=== PATIENT | female | born 1960 | race Caucasian/White ===

== ENCOUNTER → 2016-11-27 | Outpatient (CLI) | payer OTHER, BC ==
[~2016-11-27] MED LIST: BISA10SU3 PR; DICL1GEL28 TOP; IBUP-1050 PO; MISCCAP80 PO; POTA1080 PO; TOLT4CAP PO
--- NOTE | 2016-11-27 12:03 | DIAGNOSTIC IMAGING REPORT ---
KUB CLINICAL HISTORY: N20.0 [id number] nephrocalcinosis COMPARISON STUDY: 07/20/2014. FINDINGS: Right kidney is obscured due to overlying fecal material. Multiple punctate calcifications overlying the lower pole left kidney. No additional calcifications are appreciated. There are several pelvic vascular calcification. Bowel pattern is nonobstructive. IMPRESSION: Several punctate calcifications measuring up to 2.5 mm are present lower pole left kidney. Study otherwise is negative. Poor visibility right kidney due to overlying bowel content The above report was generated using voice recognition software. It may contain grammatical, syntax or spelling errors. Electronically signed by: Willie Lira M.D. 11/27/2016 12:01 PM Dictated Date/Time: 11/27/2016 12:00 PM
== END | disposition home or self-care (01) ==
LOC: C.RAD 11:14
PROVIDERS: ATTEND Urology
DX: N20.0 Calculus of kidney (principal); N39.0 Urinary tract infection, site not specified; Z11.59 Encounter for screening for other viral diseases

== ENCOUNTER → 2016-11-27 | Outpatient (CLI) | payer BC | END | disposition home or self-care (01) | LOC: C.LAB 11:09 | PROVIDERS: ATTEND Family Medicine | DX: Z11.59 Encounter for screening for other viral diseases (principal) ==

== ENCOUNTER → 2017-01-26 | Outpatient (CLI) | payer BC ==
--- NOTE | 2017-01-26 14:20 | MAMMOGRAPHY REPORT ---
BILATERAL DIGITAL SCREENING MAMMOGRAM TOMOSYNTHESIS WITH CAD: 01/26/2017 CLINICAL HISTORY: Routine screening. Patient has no complaints. TECHNIQUE: Breast tomosynthesis in addition to standard 2D mammography was performed. Current study was also evaluated with a Computer Aided Detection (CAD) system. COMPARISON: Comparison is made to exams dated: 12/14/2013 ultrasound, 12/14/2013 mammogram, 11/22/2013 ma mmogram, 10/31/2012 mammogram, 03/22/2012 ultrasound, and 03/22/2012 mammogram - [facility] enter. BREAST COMPOSITION: The tissue of both breasts is heterogeneously dense, which may obscure small mas ses. FINDINGS: No suspicious masses, calcifications, or areas of architectural distortion are noted in ei ther breast. There has been no significant interval change compared to prior exams. IMPRESSION: ACR BI-RADS CATEGORY 1: NEGATIVE There is no mammographic evidence of malignancy. A 1 year screening mammogram is recommended. The pa tient will receive written notification of the results. Approximately 10% of breast cancers are not detected with mammography. A negative mammographic report should not delay biopsy if a clinically suggestive mass is present. Elisha Jimenez M.D. /:01/26/2017 07:58:18 Quantitative Strategy Analyst: Jacki Hirsch [facility] letter sent: Normal 1/2 BI-RADS Code: ACR BI-RADS Category 1: Negative
== END | disposition home or self-care (01) ==
LOC: C.MAMM 07:28
PROVIDERS: ATTEND Family Medicine
DX: Z12.31 Encounter for screening mammogram for malignant neoplasm of breast (principal)

== ENCOUNTER → 2017-07-26 | Outpatient (CLI) | payer OTHER ==
--- NOTE | 2017-07-26 07:33 | DIAGNOSTIC IMAGING REPORT ---
KUB HISTORY: Follow-up study in a patient with left-sided nephrolithiasis N20.0 [id number] COMPARISON: KUB 11/27/2016, CT 05/03/2016. FINDINGS: The bowel gas pattern is non-obstructive. There is no organomegaly. Renal shadows are partially obscured by bowel gas. Left-sided nephrolithiasis redemonstrated with calculi measuring up to 3 mm. No definite right-sided nephrolithiasis or ureteral calculi are identified. Calcifications of the pelvis appear unchanged suggesting phleboliths. No pneumoperitoneum or pneumatosis. No fracture. Mild convex left curvature of the lumbar spine. IMPRESSION: Unchanged left sided nephrolithiasis without ureteral calculi identified. Electronically signed by: Bk Vasquez M.D. 07/26/2017 7:32 AM Dictated Date/Time: 07/26/2017 7:29 AM
== END | disposition home or self-care (01) ==
LOC: C.RAD 07:00
PROVIDERS: ATTEND Urology
DX: N20.0 Calculus of kidney (principal)

== ENCOUNTER 2021-02-21 11:23 | Inpatient (IN) ==
[2021-02-21 12:37] LABS: Basophils # (auto) 0.01 K/uL (0-0.2); Basophils % (auto) 0.1 %; Eosinophils # (auto) 0.02 K/uL (0-0.5); Eosinophils % (auto) 0.2 %; Hematocrit (blood only) 40.2 % (37-47); Immature Granulocytes # (auto) 0.03 K/uL (0.00-0.02); Immature Granulocytes % (auto) 0.3 %; Lymphocytes % (auto) 9.5 %; Mean Corpuscular Hemoglobin 26.9 pg (25-34); Mean Corpuscular Hgb Conc 32.3 g/dL (32-36); Mean Corpuscular Volume 83.2 fL (80-100); Mean Platelet Volume 9.5 fL (7.4-10.4); Monocytes # (auto) 0.69 K/uL (0.11-0.59); Monocytes % (auto) 7.3 %; Neutrophils # (auto) 7.86 K/uL (1.4-6.5); Neutrophils % (auto) 82.6 %; Platelet Count 161 K/uL (130-400); RDW Standard Deviation 42.7 fL (36.4-46.3); Red Blood Count 4.83 M/uL (4.2-5.4); White Blood Count 9.51 K/uL (4.8-10.8)
[2021-02-21] MEDS ORDERED: SODIUM CHLORIDE 0.9% 1000ML 1,000 ML IV ONE (12:47)
[2021-02-21] MEDS ORDERED: ACETAMINOPHEN 1000 MG/100 ML IV IV STA (12:47)
[2021-02-21] MEDS ORDERED: cefTRIAXone SODIUM 2,000 MG/70 ML BAG IV STA (12:47)
[2021-02-21 12:56] LABS: Alanine Aminotransferase 43 U/L (12-78); Albumin Level 2.7 gm/dl (3.4-5.0); Aspartate Aminotransferase 44 U/L (15-37); BUN Creatinine Ratio 11.5 (10-20); Blood Urea Nitrogen 13 mg/dl (7-18); Calcium 9.1 mg/dl (8.5-10.1); Carbon Dioxide 26 mmol/L (21-32); Chloride 105 mmol/L (98-107); Est GFR (African American) 61.6 ml/min; Est GFR (Non-African American) 53.2 ml/min; Glucose 109 mg/dl (70-99); Potassium 4.1 mmol/L (3.5-5.1); Sodium 136 mmol/L (136-145)
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
[2021-02-21 12:59] LABS: Albumin Globulin Ratio 0.6 (0.9-2); Alkaline Phosphatase 120 U/L (45-117); Bilirubin,Total 0.6 mg/dl (0.2-1); Globulin 4.4 gm/dl (2.5-4.0); Total Protein 7.1 gm/dl (6.4-8.2)
--- NOTE | 2021-02-21 13:21 | XRay Report ---
XR chest 1V portable HISTORY: 60 years-old Female fever acute fever COMPARISON: Chest radiograph 01/15/2021 TECHNIQUE: Portable AP view the chest FINDINGS: Cardiomediastinal and hilar silhouettes are within normal limits. Unchanged blunting of the costophre steven angles with mild linear scarring/atelectasis. No pneumothorax or large pleural effusion or overt pulmonary edema. No lobar airspace consolidation. Unchanged linear opacity of the right suprahilar reva ng suggestive of scarring. No acute fracture. IMPRESSION: Chronic findings as above without acute process. ACT 112: Negative or not required by law. The above report was generated using voice recognition software. It may contain grammatical, syntax o r spelling errors. Electronically signed by: Volodymyr Vasquez M.D. 02/21/2021 1:20 PM
[2021-02-21] MEDS ORDERED: DAPTOmycin 375 MG in SYRINGE 0 ML IV ONE (13:39)
[2021-02-21 13:54] LABS: Appearance Urine Cloudy (Clear); Bacteria Urine Automated Negative (Negative); Bilirubin Urine Negative (Negative); Blood Urine 3+ (Negative); Color Urine Orange; Epithelial Cell Urine Auto >30 /lpf (0-5); Glucose Urine UA Negative (Negative); Ketones Urine Trace (Negative); Leukocyte Esterase Urine 3+ (Negative); Nitrite Urine Negative (Negative); Protein Urine 2+ (Negative); RBC Urine Automated >30 /hpf (0-4); Specific Gravity Urine 1.012 (1.000-1.030); Urobilinogen Urine Negative (Negative); WBC Urine Automated >30 /hpf (0-5); pH Urine 6.5 (4.5-7.5)
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
[2021-02-21] MEDS ORDERED: FLUCONAZOLE 100 MG TAB PO ONE (14:51)
--- NOTE | 2021-02-21 15:11 | CT Scan Report ---
ABDOMEN AND PELVIS CT WITHOUT CONTRAST CT DOSE: 283.35 mGy.cm HISTORY: Follow up study in a patient with left ureteral stent placement. Acute left-sided flank pain poss hydro/obstruc TECHNIQUE: Multiaxial CT images of the abdomen and pelvis were performed without contrast. A dose lo wering technique was utilized adhering to the principles of ALARA. COMPARISON STUDY: CT abdomen and pelvis 12/25/2020 FINDINGS: Trace right and small left pleural effusions. Subsegmental bibasilar atelectasis. No pneumatosis or p neumoperitoneum. Trace pericardial effusion. The unenhanced spleen is mildly enlarged. Left upper laura drant splenules. No adenopathy. Unremarkable gallbladder. 1.2 cm right hepatic lobe cyst. The liver i s otherwise unremarkable. Numerous tiny right renal stone fragments are suggestive of interval lithotripsy. These are noted wit hin the interpolar right kidney and renal pelvis. Mild right-sided hydroureteronephrosis with at leas t 2 calculi noted within the distal right ureter measuring up to 5 mm. Mild urothelial thickening of the right renal pelvis. Numerous large left-sided renal calculi redemonstrated. A left-sided ureteral stent in place with mil d hydroureteronephrosis. No ureteral calculi identified. There are numerous small calculi noted withi n the dependent urinary bladder. Moderate left perinephric and proximal periureteral inflammatory str anding. There is an ill-defined large subcapsular hematoma involving the interpolar and superior pole left kidney which measures up to approximately 5.0 x 2.9 and measuring up to at least 7 cm inguinal, dimension. This is likely subacute. There are associated calcifications within the hematoma and tomas g the left renal capsule. There is displacement of the renal pelvis anteriorly. Hemorrhage tracks int o the retroperitoneal tissues of the lower abdomen and pelvis. Urinary bladder wall thickening with t rabeculation. Air in the bladder lumen is likely secondary to instrumentation. Hysterectomy. No abdom inal aortic aneurysm. No adenopathy. No bowel obstruction or bowel wall thickening. Chronic soft tissue thickening within the perianal tis sues. No acute fracture. IMPRESSION: 1. Left-sided ureteral stent is in place with mild left-sided hydroureteronephrosis. There is a large likely subacute subcapsular hematoma on the left kidney which measures up to at least 7 cm in length . The hematoma compresses and distorts the renal parenchyma and renal pelvis. 2. Mild right-sided hydroureteronephrosis with at least 2 calculi of the distal right ureter measurin g up to 5 mm. Numerous tiny urinary bladder calculi are also present. 3. Nonobstructing bilateral nephrolithiasis with stone fragments within the right renal pelvis. 4. Chronic soft tissue thickening of the perianal tissues. 5. Small left and trace right pleural effusions. 6. Additional findings as above. ACT 112: Negative or not required by law. The above report was generated using voice recognition software. It may contain grammatical, syntax o r spelling errors. Electronically signed by: Volodymyr Vasquez M.D. 02/21/2021 3:09 PM
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
[2021-02-21] MEDS ORDERED: MIDAZOLAM HCL 1 MG/ML 2ML VIAL ONE (17:01)
[2021-02-21] MEDS ORDERED: fentaNYL citrate 100 MCG/2 ML VIAL ONE (17:01)
[2021-02-21] MEDS ORDERED: ONDANSETRON INJ 2 MG/ML 2 ML VIAL ONE (17:04)
[2021-02-21] MEDS ORDERED: LIDOCAINE 2% 2 ML VIAL/AMP(20MG/ML) INFIL ONE (17:04)
[2021-02-21] MEDS ORDERED: PROPOFOL IV EMULSION 10 MG/ML 20 ML VIAL IV ONE (17:04)
[2021-02-21] MEDS ORDERED: ATROPINE SULFATE 0.1 MG/ML 10ML SYR IV PRN (17:24)
[2021-02-21] MEDS ORDERED: ONDANSETRON INJ 2 MG/ML 2 ML VIAL IV PRN ×2 (17:24→18:46)
[2021-02-21] MEDS ORDERED: fentaNYL citrate 100 MCG/2 ML VIAL IV PRN (17:24)
[2021-02-21] MEDS ORDERED: GLYCOPYRROLATE 0.2 MG/ML VIAL ONE (17:53)
--- NOTE | 2021-02-21 17:57 | Post Operative Brief Note ---
PG Immediate Post Op with CF Date of Surgery February 21, 2021 Pre & Post Diagnosis Right urolithiasis Operation Date: 02/21/21 16:30 <No data on this case meets the specified criteria> Right urolithiasis I identified the patient and participated in the time-out.: Yes Procedure Operation Date: 02/21/21 16:30 <No data on this case meets the specified criteria> Cystoscopy, right retrograde pyelogram, right ureteral stent, tian placement Surgeon Saturnino Zhao MD Slasher Operator None Estimated Blood Loss 0 Findings Consistent with Post-Op Diagnosis Stent in good position. Stones in bladder evacuated out. Drains Tian Catheter and Other (Right 6x24 stent ) Disposition Accompanied Patient To Recovery: No Disposition: Recovery Room Overlapping Procedure I was present for: the critical portions of procedure.
--- NOTE | 2021-02-21 17:58 | Operative Report ---
PG Post Operative Report Pre & Post Diagnosis Operation Date: 02/21/21 16:30 Pre-Op Diagnosis: right ureteral calculi Post-Op Diagnosis: right ureteral calculi I identified the patient and participated in the time-out.: Yes Procedure Operation Date: 02/21/21 16:30 Actual Procedures p Cystoscopy, right retrograde pyelogram, right ureteral stent insertion, tian catheter insertion, evacuation of bladder stones - Saturnino Zhao MD Surgeon Saturnino Zhao MD Manager Strategic Sourcing None Estimated Blood Loss 0 Findings Consistent with Post-Op Diagnosis 1. Right retrograde pyelogram showed mild to moderate right hydronephrosis 2. Small stones in bladder, evacuated out with scope 3. Stent in good position. Tian catheter left in place for maximal drainage. Specimens None Drains 1. Six Singaporean by 24 cm right ureteral stent 2. 16 Singaporean Tian with 10 cc in balloon Anesthesia Type MAC Complications None Disposition Accompanied Patient To Recovery: No Disposition: Recovery Room Indications 60-year-old paraplegic with a history of nephrolithiasis. She is status post right ureteroscopy with stent removal and left ureteroscopy with plan for second procedure using ESWL. She came into the hospital earlier with subjective fevers and CT scan showed two right distal ureteral calculi with moderate hydronephrosis and a UA concerning for infection. Taken to the operating room for right ureteral stent placement. Description of Procedure After informed consent was obtained, the patient was transported operative suite. MAC anesthesia was induced. The patient was placed in dorsolithotomy position prepped and draped in a sterile fashion. They received preoperative ceftriaxone, Diflucan and daptomycin for antibiotic prophylaxis in the emergency department. An appropriate surgical timeout was performed. A 22 Singaporean rigid scope was inserted per urethra into the bladder. Brunson cystoscopy revealed no lesions but there were several bladder stones. These were evacuated out with the cystoscope. I turned my attention the right ureteral orifice and intubated this with a 5 Singaporean open-ended catheter. A right retrograde pyelogram was shot which showed mild hydronephrosis. A sensor wire was advanced into the kidney and confirmed fluoroscopically. A 6 Singaporean by 24 cm right ureteral stent was deployed with a good proximal coil in the renal pelvis and a good distal coil noted in the bladder. These were confirmed fluoroscopically and under direct visualization, respectively. The scope was removed. A 16 Singaporean Tian catheter was placed the balloon was inflated with sterile water. This concluded the end of the case. All counts were correct at the end of the case. I was present, scrubbed, and actively participated for the entire to the procedure. I attest to the content of the Intraoperative Record and any orders documented therein. Any exceptions are noted below.
[2021-02-21] MEDS ORDERED: DIATRIZOATE MEGLUMINE 30% 100ML VIAL INSTIL ONE (18:05)
--- NOTE | 2021-02-21 18:19 | Fluoroscopy Report ---
FL retrograde includes kub HISTORY: 60 years-old Female STENT PLACEMENT STATUS post placement of a right ureteral stent COMPARISON: CT abdomen and pelvis 02/21/2021 TECHNIQUE: 3 spot fluoroscopic images of the abdomen were obtained utilizing 6.3 seconds fluoroscopy time FINDINGS: Retrograde injection of contrast into the right ureter demonstrates persistent hydroureteronephrosis with right ureteral calculi. Subsequent images demonstrate placement of a right ureteral stent, the p roximal portion appearing to be in satisfactory positioning. IMPRESSION: Fluoroscopic assistance as above. ACT 112: Negative or not required by law. The above report was generated using voice recognition software. It may contain grammatical, syntax o r spelling errors. Electronically signed by: Volodymyr Vasquez M.D. 02/21/2021 6:17 PM
--- NOTE | 2021-02-21 18:20 | Anesthesiology Progress Note ---
Date of Service February 21, 2021 Anesthesia Post Procedure Vital Signs Vital Signs: Temp Pulse Pulse Resp BP BP Pulse Ox 02/21/21 18:15 36.1 C L 636 H 16 99/51 L 95 02/21/21 18:10 63 16 101/59 L 98 02/21/21 18:03 36.1 C L 64 16 111/54 L 98 02/21/21 15:00 67 20 133/68 97 02/21/21 13:05 66 16 110/61 98 02/21/21 11:42 36.7 C 95 H 20 94/64 L 97 Transfer of Care Handoff Completed per policy Notes Mental Status: alert / awake / arousable Patient Amnestic to Procedure: Yes Nausea / Vomiting: adequately controlled Pain: adequately controlled Airway Patency, RR, SpO2: stable & adequate BP & HR: stable & adequate Hydration State: stable & adequate Anesthetic Complications: no major complications apparent
[2021-02-21] MEDS ORDERED: MEROPENEM CONSULT ACTIVE PRN (18:46)
[2021-02-21] MEDS: MEROPENEM 500 MG in SYRINGE 0 ML IV SCH (22:16)
[2021-02-21] MEDS: TOLTERODINE TARTRATE LA 4 MG CAPCR PO SCH (22:16)
[2021-02-21] MEDS: POTASSIUM CITRATE 10 MEQ TAB PO SCH (22:16)
[2021-02-21] MEDS: HYDROCODONE/ACETAMOPHEN 5/325MG TAB PO PRN (22:24)
[2021-02-22] MEDS: ACETAMINOPHEN 325 MG TAB PO PRN ×2 (03:04→21:15)
[2021-02-22] MEDS ORDERED: SODIUM CHLORIDE 0.9% 1000ML 1,000 ML IV SCH (03:15)
[2021-02-22] MEDS: MEROPENEM 500 MG in SYRINGE 0 ML IV SCH ×4 (05:00→23:38)
[2021-02-22] MEDS: HYDROCODONE/ACETAMOPHEN 5/325MG TAB PO PRN ×3 (05:08→23:50)
[2021-02-22 07:46] LABS: Basophils # (auto) 0.01 K/uL (0-0.2); Basophils % (auto) 0.1 %; Eosinophils # (auto) 0.12 K/uL (0-0.5); Eosinophils % (auto) 1.7 %; Hematocrit (blood only) 34.2 % (37-47); Hemoglobin 10.9 g/dL (12.0-16.0); Immature Granulocytes # (auto) 0.02 K/uL (0.00-0.02); Immature Granulocytes % (auto) 0.3 %; Lymphocytes # (auto) 0.83 K/uL (1.2-3.4); Lymphocytes % (auto) 11.6 %; Mean Corpuscular Hemoglobin 26.5 pg (25-34); Mean Corpuscular Hgb Conc 31.9 g/dL (32-36); Mean Corpuscular Volume 83.2 fL (80-100); Mean Platelet Volume 9.4 fL (7.4-10.4); Monocytes # (auto) 0.43 K/uL (0.11-0.59); Neutrophils # (auto) 5.75 K/uL (1.4-6.5); Neutrophils % (auto) 80.3 %; Platelet Count 132 K/uL (130-400); RDW Coefficient of Variation 14.1 % (11.5-14.5); RDW Standard Deviation 43.3 fL (36.4-46.3); Red Blood Count 4.11 M/uL (4.2-5.4); White Blood Count 7.16 K/uL (4.8-10.8)
[2021-02-22] MEDS: bisacodyL 10 MG SUPP PR SCH (07:56)
[2021-02-22 08:09] LABS: BUN Creatinine Ratio 14.6 (10-20); Calcium 8.7 mg/dl (8.5-10.1); Creatinine Clr Calc Pharmacy 66.3 ml/min; Est GFR (African American) 82.8 ml/min; Est GFR (Non-African American) 71.4 ml/min; Magnesium 2.1 mg/dl (1.8-2.4); Potassium 4.5 mmol/L (3.5-5.1)
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
[2021-02-22] MEDS: POTASSIUM CITRATE 10 MEQ TAB PO SCH ×2 (08:43→21:15)
[2021-02-22] MEDS: FLUCONAZOLE 100 MG TAB PO SCH (08:43)
[2021-02-22] MEDS ORDERED: FLUCONAZOLE 100 MG TAB PO SCH (09:00)
--- NOTE | 2021-02-22 09:47 | Urology Progress Note ---
Date of Service February 22, 2021 Assessment & Plan (1) Renal hematoma: (2) Right ureteral calculus: Plan: 60-year-old paraplegic with a history of nephrolithiasis. She currently has a left indwelling ureteral stent and a right stent was previously removed following ureteroscopy. Presented the emergency department with fevers and was noted to have 2 distal obstructing right ureteral calculi with a urine concerning for infection, although she is likely colonized from intermittent catheterization. She also had a subcapsular hematoma of the left kidney, which may be from her last ureteroscopy. Status post cystoscopy, right ureteral stent placement and Kahn catheter placement on 02/21/2021 Patient stable this morning. Kahn catheter draining without issue. Reports feeling much better. Reasonable to remove Kahn catheter tomorrow and resume CIC schedule if patient stable Continue antibiotics and follow-up culture sensitivities. Would recommend total of 7 to 10 days of antibiotics based on cultures. Urology will cancel upcoming procedure this Tuesday and schedule a phone visit with Dr. Weinstein to discuss management moving forward Continue to trend hemoglobin due to hematoma. Conservative management. Urology to follow peripherally. Please call us with any questions or concerns Admission and Anticipated Discharge Date Admission Date: February 21, 2021 Subjective No acute issues overnight. Patient reports some discomfort in the bladder from the stents but overall says that she feels much better. Afebrile with otherwise stable vitals. Kahn catheter draining without issue. WBCs and creatinine downtrending. Drop in hemoglobin but suspect this is mainly dilutional from surgery and fluids. Review of Systems Review of Systems: 14 point review of systems negative outside of what is listed above in HPI Physical Exam Physical Exam: General: Alert and oriented, no acute distress HEENT: Normocephalic, mucous membranes moist Cardiovascular: Regular rate Pulmonary: Nonlabored respirations Abdomen: Nondistended : Kahn catheter draining clear urine Extremities: Moves upper extremities spontaneously Neuro: No motor function below the waist Skin: Warm, dry, no rashes noted Results & Data ([facility]) Vital Signs (Past 12 Hours) Vital Signs Temp Pulse Resp BP Pulse Ox 02/22/21 07:49 36.8 C 60 18 123/69 97 02/22/21 04:11 37.2 C 63 16 114/65 96 02/21/21 21:45 36.4 C L 70 20 103/61 99 PG Care Time/CCT Total # of Minutes Spent Total Time Spent with Patient: Total time spent is greater than 50% in coordinat ion of care (as documented) at patient's floor/unit and/or counseling patient: Coding Level of Care Code 03868 Subseq Hosp Care Lvl 2 Diagnoses Renal hematoma S37.019A Right ureteral calculus N20.1
[2021-02-22 13:27] LABS: Hematocrit (blood only) 35.2 % (37-47); Hemoglobin 11.5 g/dL (12.0-16.0); Mean Corpuscular Hemoglobin 26.8 pg (25-34); Mean Corpuscular Hgb Conc 32.7 g/dL (32-36); Mean Corpuscular Volume 82.1 fL (80-100); Mean Platelet Volume 9.2 fL (7.4-10.4); Platelet Count 135 K/uL (130-400); RDW Coefficient of Variation 14.3 % (11.5-14.5); RDW Standard Deviation 42.9 fL (36.4-46.3); Red Blood Count 4.29 M/uL (4.2-5.4); White Blood Count 7.88 K/uL (4.8-10.8)
[2021-02-22] MEDS ORDERED: DAPTOmycin 250 MG in SYRINGE 0 ML IV SCH (15:00)
[2021-02-22] MEDS ORDERED: DAPTOmycin 425 MG in SYRINGE 0 ML IV SCH (15:00)
[2021-02-22] MEDS: TOLTERODINE TARTRATE LA 4 MG CAPCR PO SCH (21:15)
[2021-02-23] MEDS: MEROPENEM 500 MG in SYRINGE 0 ML IV SCH ×2 (05:38→12:42)
[2021-02-23 07:25] LABS: Basophils # (auto) 0.01 K/uL (0-0.2); Basophils % (auto) 0.1 %; Eosinophils # (auto) 0.09 K/uL (0-0.5); Eosinophils % (auto) 1.2 %; Hematocrit (blood only) 34.5 % (37-47); Immature Granulocytes # (auto) 0.03 K/uL (0.00-0.02); Immature Granulocytes % (auto) 0.4 %; Lymphocytes # (auto) 0.95 K/uL (1.2-3.4); Lymphocytes % (auto) 12.5 %; Mean Corpuscular Hemoglobin 26.4 pg (25-34); Mean Corpuscular Hgb Conc 31.9 g/dL (32-36); Mean Corpuscular Volume 82.7 fL (80-100); Mean Platelet Volume 9.7 fL (7.4-10.4); Monocytes # (auto) 0.53 K/uL (0.11-0.59); Neutrophils % (auto) 78.8 %; Platelet Count 155 K/uL (130-400); RDW Coefficient of Variation 14.1 % (11.5-14.5); RDW Standard Deviation 42.5 fL (36.4-46.3); Red Blood Count 4.17 M/uL (4.2-5.4); White Blood Count 7.61 K/uL (4.8-10.8)
[2021-02-23] MEDS: bisacodyL 10 MG SUPP PR SCH (07:36)
[2021-02-23] MEDS: HYDROCODONE/ACETAMOPHEN 5/325MG TAB PO PRN (07:42)
[2021-02-23] MEDS: FLUCONAZOLE 100 MG TAB PO SCH (07:42)
[2021-02-23] MEDS: POTASSIUM CITRATE 10 MEQ TAB PO SCH (07:42)
[2021-02-23 07:43] LABS: BUN Creatinine Ratio 13.4 (10-20); Calcium 8.9 mg/dl (8.5-10.1); Est GFR (African American) 67.5 ml/min; Est GFR (Non-African American) 58.2 ml/min; Magnesium 2.1 mg/dl (1.8-2.4); Potassium 4.6 mmol/L (3.5-5.1)
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
--- NOTE | 2021-03-03 16:05 | Coding Query ---
CODING QUERY To promote full compliance with coding requirements relating to patient care, provider participation is requested in all cases of connection worker uncertainty. Please assist us with the question(s) below: In the record, it states that the patient has an UTI. Please clarify below the cause of the UTI if applicable. Thank you. ( ) indwelling ureteral stent was the cause of the UTI. ( ) Other urinary cath/device was the cause of the UTI. ( x ) UTI, unspecified cause. ( ) Self-catheterization was the cause of the UTI. ( ) Other (Specify): Principal Diagnosis: "that condition established after study, to be chiefly responsible for occasioning the admission of the patient to the hospital for care." Co-Existing Principal Diagnosis: "when two or more diagnoses equally meet the criteria for principal diagnosis as determined by the circumstances of admission, diagnostic work up, and/or therapy provided, and the Alphabetic Index, Tabular List, or another coding guideline does not provide sequencing direction, any one of the diagnoses may be sequenced first." "When the physician has documented what appears to be a current diagnosis in the body of the record, but has not included the diagnosis in the final diagnostic statement, the physician should be asked whether the diagnosis should be added." (Source Coding [facility] 2 QTR90. p3-4) SHAYNE
== END 2021-02-23 14:02 | disposition home or self-care (01) | DRG 660 ==
LOC: ED 11:23 → ASU 17:05 → 3E 17:05 → SUATTDRO 17:06 → 3E 17:17 → SUATTDRO 02-22 17:04

== ENCOUNTER 2022-04-18 14:49 | Inpatient (IN) ==
[2022-04-18] MEDS ORDERED: SODIUM CHLORIDE 0.9% 1000ML 1,000 ML IV STA (15:07)
[2022-04-18] MEDS ORDERED: ACETAMINOPHEN 500 MG TAB PO STA (15:07)
[2022-04-18] MEDS ORDERED: ONDANSETRON INJ 2 MG/ML 2 ML VIAL IV STA (15:15)
[2022-04-18] MEDS ORDERED: fentaNYL citrate 100 MCG/2 ML VIAL IV PRN (15:15)
[2022-04-18] MEDS ORDERED: CEFEPIME 20 ML IV STA (15:21)
[2022-04-18] MEDS ORDERED: DAPTOmycin 425 MG in SYRINGE 0 ML IV STA (15:28)
--- NOTE | 2022-04-18 15:47 | Emergency Department Note ---
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 definite bowel wall thickening or obstruction. Normal appendix. Complex right ovarian lesion remains unchanged. IMPRESSION: 1. A 14 x 8 mm obstructing stone within the distal left ureter resulting in moderate left hydronephrosis. 2. Bilateral nephrolithiasis. 3. A few large bladder calculi are noted. The bladder is decompressed by a Kahn catheter. 4. Redemonstration of the complex right ovarian lesion. 5. Additional findings as described above. ACT 112: Negative or not required by law. Electronically signed by: Saran Johnston M.D. 04/18/2022 4:37 PM Abdomen Fluoroscopy 04/18/22 17:35 FL KUB CLINICAL HISTORY: LT CYSTO STENT COMPARISON STUDY: Abdomen and pelvis CT 04/18/2022. FLUOROSCOPY TIME: 6 seconds. FINDINGS: 4 fluoroscopic spot images of the abdomen and pelvis demonstrate placement of a left ureteral stent. Only the proximal portion of the stent is identified but appears in good position. Multiple left renal calculi and bladder calculi are again noted. There is a distal left ureteral calculus identified. IMPRESSION: Fluoroscopic assistance provided for left ureteral stent placement as above. ACT 112: Negative or not required by law. Electronically signed by: Saran Johnston M.D. 04/18/2022 7:07 PM Discharge Plan Visit Data Chief Complaint: Fever Stated Complaint: FEVER ED Provider: Pedro Pablo Moreau Discharge Problem: Sepsis, UTI (urinary tract infection), Elevated troponin, Hydronephrosis with urinary obstruction due to ureteral calculus Patient Disposition: Admitted As Inpatient Discharge Instructions Interventions: ED Discharge Assessment Last Done: 04/18/22 17:48
[2022-04-18 16:23] LABS: Hematocrit (blood only) 37.7 % (34.1-44.9); Hemoglobin 12.4 g/dl (12.0-16.0); Mean Platelet Volume 9.6 fL (9.4-12.3); Platelet Count 118 K/uL (130-400); White Blood Count 2.05 K/ul (4.8-10.8)
--- NOTE | 2022-04-18 16:40 | CT Scan Report ---
ABDOMEN AND PELVIS CT WITHOUT CONTRAST CT DOSE: 482.85 mGy.cm HISTORY: Fever. Urinary tract infection. Kidney stones. TECHNIQUE: Multiaxial CT images of the abdomen and pelvis were performed without contrast. A dose lo wering technique was utilized adhering to the principles of ALARA. COMPARISON STUDY: KUB 02/18/2022. Abdomen and pelvis CT 03/23/2021. FINDINGS: Bibasilar subsegmental atelectasis is noted. No pneumoperitoneum. No pneumatosis. No acute fractures within the visualized osseous structures. Chronic perineal soft tissue thickening again not ed. Diffuse muscular atrophy, unchanged. This is consistent with the patient's history of paraplegia. Stable 13 mm hypodense lesion within the right hepatic lobe. This favors a cyst. The gallbladder, sp natividad, adrenal glands, and pancreas appear unremarkable. No retroperitoneal lymphadenopathy. Calcified plaque within the normal caliber abdominal aorta. No pelvic free fluid. The uterus is surgically abs ent. Stable 1 cm nodule at the vaginal cuff. The bladder is decompressed by a Kahn catheter. There a re 2 large bladder stones measuring up to 2.4 cm there are few punctate stones within the right kidne y. No right-sided hydronephrosis. Multiple stones again noted within the lower pole the left kidney w hich are similar to the prior study. Cortical calcification within the left kidney persist. There is mild left perinephric edema. There has been interval of moderate left hydroureteronephrosis secondary to an obstructing 14 x 8 mm stone within the distal left ureter best seen on image 363. Suboptimal e valuation for bowel pathology due to the lack of intravenous and oral contrast. However, there is no definite bowel wall thickening or obstruction. Normal appendix. Complex right ovarian lesion remains unchanged. IMPRESSION: 1. A 14 x 8 mm obstructing stone within the distal left ureter resulting in moderate left hydronephro sis. 2. Bilateral nephrolithiasis. 3. A few large bladder calculi are noted. The bladder is decompressed by a Kahn catheter. 4. Redemonstration of the complex right ovarian lesion. 5. Additional findings as described above. ACT 112: Negative or not required by law. Electronically signed by: Saran Johnston M.D. 04/18/2022 4:37 PM
[2022-04-18 16:47] LABS: Albumin Globulin Ratio 1.2 (0.9-2); Albumin Level 3.4 gm/dl (3.4-5.0); Bilirubin,Total 1.3 mg/dl (0.2-1.0); C Reactive Protein 16.78 mg/dl (0-0.5); Calcium 8.8 mg/dl (8.5-10.1); Est GFR (Non-African American) 56.1 ml/min; Globulin 2.8 gm/dl (2.5-4.0); Mean Corpuscular Hemoglobin 27.4 pg (25.0-34.0); Mean Corpuscular Hgb Conc 32.9 g/dL (32.0-36.0); Mean Corpuscular Volume 83.4 fL (80.0-100.0); Potassium 3.6 mmol/L (3.5-5.1); RDW Coefficient of Variation 13.4 % (11.5-14.5); RDW Standard Deviation 40.6 fL (36.4-46.3); Red Blood Count 4.52 M/uL (3.93-5.22); Total Protein 6.2 gm/dl (6.0-8.3)
[2022-04-18 16:52] LABS: Appearance Urine Turbid (Clear); Bacteria Urine Automated 4+ (Negative); Bilirubin Urine Negative (Negative); Blood Urine 2+ (Negative); Cast Urine Automated 0 /lpf (0-5); Color Urine Yellow; Epithelial Cell Urine Auto 20-30 /lpf (0-5); Glucose Urine UA Negative (Negative); Ketones Urine Negative (Negative); Leukocyte Esterase Urine 3+ (Negative); Nitrite Urine Positive (Negative); Protein Urine 1+ (Negative); Specific Gravity Urine 1.013 (1.000-1.030); Urobilinogen Urine Negative (Negative); WBC Urine Automated >30 /hpf (0-5); pH Urine 6.5 (4.5-7.5)
[2022-04-18] MEDS ORDERED: SODIUM CHLORIDE 0.9% 1000ML 1,000 ML IV ONE (16:53)
[2022-04-18 16:57] LABS: Troponin I High Sensitivity 50.1 pg/ml (0-14)
[2022-04-18 17:06] LABS: Dohle Bodies 1+; Immature Granulocytes # (auto) 0.01 K/uL (0.00-0.02); Immature Granulocytes % (auto) 0.5 %; Lymphocytes # (auto) 0.18 K/uL (1.2-3.4); Lymphocytes % (auto) 8.8 %; Monocytes # (auto) 0.01 K/uL (0.24-0.82); Monocytes % (auto) 0.5 %; Neutrophils # (auto) 1.85 K/uL (1.4-6.5); Neutrophils % (auto) 90.2 %
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
--- NOTE | 2022-04-18 17:32 | XRay Report ---
XR chest 1V portable HISTORY: Fever COMPARISON: Chest 02/21/2021. FINDINGS: Left basilar subsegmental atelectasis. No pneumothorax. No pleural effusions. The heart rem ains normal in size. No evidence for pulmonary edema. Degenerative changes again noted within the ana luisa ulders. IMPRESSION: No significant change compared to the prior study. No acute process. ACT 112: Negative or not required by law. Electronically signed by: Saran Johnston M.D. 04/18/2022 5:30 PM
[2022-04-18 17:49] LABS: Adenovirus PCR Not Detected (NotDetected); Bordetella parapertussis PCR Not Detected (NotDetected); Bordetella pertussis PCR Not Detected (NotDetected); Chlamydia pneumoniae PCR Not Detected (NotDetected); Coronavirus 229E PCR Not Detected (NotDetected); Coronavirus CoV-2 (COVID19)PCR Not Detected (NotDetected); Coronavirus HKU1 PCR Not Detected (NotDetected); Coronavirus NL63 PCR Not Detected (NotDetected); Coronavirus OC43PCR Not Detected (NotDetected); Human Metapneumovirus PCR Not Detected (NotDetected); Influenza A PCR Not Detected (NotDetected); Influenza B PCR Not Detected (NotDetected); Mycoplasma pneumoniae PCR Not Detected (NotDetected); Parainfluenza Virus 1 PCR Not Detected (NotDetected); Parainfluenza Virus 2 PCR Not Detected (NotDetected); Parainfluenza Virus 3 PCR Not Detected (NotDetected); Parainfluenza Virus 4 PCR Not Detected (NotDetected); Respiratory Syncytial VirusPCR Not Detected (NotDetected); Rhinovirus/Enterovirus PCR Not Detected (NotDetected)
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
[2022-04-18] MEDS ORDERED: MIDAZOLAM HCL 1 MG/ML 2ML VIAL ONE (18:20)
[2022-04-18] MEDS ORDERED: PHENYLEPHRINE 100MCG/ML 5ML SYR ONE (18:27)
[2022-04-18] MEDS ORDERED: DIATRIZOATE MEGLUMINE 30% 100ML VIAL INSTIL ONE (18:31)
[2022-04-18] MEDS ORDERED: PROPOFOL IV EMULSION 10 MG/ML 20 ML VIAL IV ONE (18:41)
--- NOTE | 2022-04-18 18:47 | Operative Report ---
PG Post Operative Report Pre & Post Diagnosis Operation Date: 04/18/22 18:00 Pre-Op Diagnosis: Left Ureteral stone, hydronephrosis, UTI Post-Op Diagnosis: Left Ureteral stone, hydronephrosis, UTI I identified the patient and participated in the time-out.: Yes Procedure Operation Date: 04/18/22 18:00 Actual Procedures p Cystoscopy, left retrograde pyelogram, left Ureteral Stent Placement(Left) - Tarik Perez MD Surgeon Tarik Perez MD Hide Examiner None Estimated Blood Loss 0 Findings Consistent with Post-Op Diagnosis Specimens None Drains 7 Zimbabwean by 24 cm double-J ureteral stent in the left ureter Anesthesia Type MAC Complications none Disposition Accompanied Patient To Recovery: Yes Disposition: Recovery Room Indications This is a 62-year-old female with history of neurogenic bladder and paraplegia managed with intermittent catheter as well as with history of nephrolithiasis. She presented to the emergency department on 04/18/2022 with fevers and was found on CT scan to have an obstructing stone in the left ureter. She is being brought to the OR for left ureteral stent placement for source control in the setting of sepsis. Description of Procedure The patient was identified in the holding area and informed consent was confirmed. She was marked on the left side, then was taken to the operating room where anesthesia was initiated. She was placed in the dorsal lithotomy position with all pressure points appropriately padded. She was prepped and draped in the usual sterile fashion and a preoperative timeout was performed. A well-lubricated cystoscope was inserted per urethra and panendoscopy was performed. The urethra was normal in appearance. The bladder was of normal size with ureteral orifices in orthotopic position. The left ureteral orifice was identified. This was cannulated with a 0.038 inch zip wire, which met immediate resistance in the distal ureter at the level of the stone. As this was gently bypassed, there was drainage of purulent appearing material. The zip wire was advanced up to the kidney under fluoroscopic guidance. Over the wire, a 7 Zimbabwean x 24 centimeter double-J ureteral stent was advanced. When the wire was removed, the proximal curl was visualized in the kidney with x-ray, and the distal curl visualized in the bladder with the cystoscope. A 16 Zimbabwean Kahn catheter was placed per urethra with the balloon filled with 10 mL normal saline. The catheter was attached to gravity drainage. The patient was then awakened from anesthesia and was brought to the PACU in stable condition. I attest to the content of the Intraoperative Record and any orders documented therein. Any exceptions are noted below.
[2022-04-18] MEDS ORDERED: ALUMINUM/MAGNESIUM SUSP 30 ML UDC PO PRN (18:53)
[2022-04-18] MEDS ORDERED: ONDANSETRON INJ 2 MG/ML 2 ML VIAL IV PRN ×2 (18:53→19:05)
[2022-04-18] MEDS ORDERED: ACETAMINOPHEN 325 MG TAB PO PRN (18:53)
[2022-04-18] MEDS ORDERED: ATROPINE SULFATE 0.1 MG/ML 10ML SYR IV PRN (19:05)
[2022-04-18] MEDS ORDERED: ePHEDrine sulfate 50 MG/ML AMP IV PRN (19:05)
--- NOTE | 2022-04-18 19:08 | Fluoroscopy Report ---
FL KUB CLINICAL HISTORY: LT CYSTO STENT COMPARISON STUDY: Abdomen and pelvis CT 04/18/2022. FLUOROSCOPY TIME: 6 seconds. FINDINGS: 4 fluoroscopic spot images of the abdomen and pelvis demonstrate placement of a left ureter al stent. Only the proximal portion of the stent is identified but appears in good position. Multiple left renal calculi and bladder calculi are again noted. There is a distal left ureteral calculus dana ntified. IMPRESSION: Fluoroscopic assistance provided for left ureteral stent placement as above. ACT 112: Negative or not required by law. Electronically signed by: Saran Johnston M.D. 04/18/2022 7:07 PM
[2022-04-18] MEDS: PHENYLEPHRINE 100MCG/ML 5ML SYR IV PRN ×5 (19:17→19:37)
--- NOTE | 2022-04-18 19:36 | Anesthesiology Progress Note ---
Date of Service April 18, 2022 Anesthesia Post Procedure Vital Signs Vital Signs: Temp Pulse Pulse Pulse Resp BP BP 04/18/22 19:20 88 17 04/18/22 19:10 91 H 16 04/18/22 19:00 93 H 16 04/18/22 18:50 36.6 C 93 H 22 04/18/22 17:40 103 H 20 88/58 L 04/18/22 16:30 98 H 27 H 04/18/22 16:21 96/49 L 04/18/22 16:08 27 H 04/18/22 16:00 115 H 25 H 04/18/22 15:30 101 H 26 H 04/18/22 15:19 99 H 22 04/18/22 14:55 37.7 C H 81 18 83/43 L BP Pulse Ox O2 Del Method O2 Flow Rate 04/18/22 19:20 80/45 L 100 Nasal Cannula 4 04/18/22 19:10 75/39 L 100 Nasal Cannula 4 04/18/22 19:00 80/50 L 100 Nasal Cannula 4 04/18/22 18:50 79/39 L 98 Nasal Cannula 2 04/18/22 17:40 100 Room Air 04/18/22 16:30 98 04/18/22 16:21 04/18/22 16:08 80 L 04/18/22 16:00 04/18/22 15:30 98 04/18/22 15:19 99 04/18/22 14:55 97 Room Air Pain Intensity Lower Abdomen: Pain Intensity: 6 Transfer of Care Handoff Completed per policy Notes Mental Status: alert / awake / arousable Patient Amnestic to Procedure: Yes Nausea / Vomiting: adequately controlled Pain: adequately controlled Airway Patency, RR, SpO2: stable & adequate BP & HR: see Notes below Hydration State: see Notes below Anesthetic Complications: no major complications apparent and see Notes below Notes: Patient is urroseptic w/ hypotension. Dr Corona called by SWISS MACHINIST,will keep pt. in ICU for TX
[2022-04-18] MEDS ORDERED: NOREPINEPHRINE/D5W 4 MG/250 ML IV ONE (19:40)
[2022-04-18] MEDS ORDERED: STAT IV Infusion **Titration per Protocol STA ×2 (20:46→20:50)
[2022-04-18] MEDS ORDERED: PHENYLEPHRINE HCL 20 MG in DEXTROSE 5% 500 ML IV SCH (20:46)
[2022-04-18] MEDS: NORMOSOL-R 1,000 ML IV SCH (20:58)
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
[2022-04-18] MEDS: NOREPINEPHRINE/D5W 4 MG/250 ML PLCT IV SCH (21:11)
[2022-04-18] MEDS: ICU Protocol for HYPERglycemia SCH (21:14)
[2022-04-19] MEDS ORDERED: CEFEPIME 2,000 MG in SYRINGE 0 ML IV SCH ×2 (04:00→12:00)
[2022-04-19] MEDS: NORMOSOL-R 1,000 ML IV SCH (04:15)
[2022-04-19] MEDS: NOREPINEPHRINE/D5W 4 MG/250 ML PLCT IV SCH (04:22)
[2022-04-19 05:02] LABS: Hematocrit (blood only) 34.5 % (34.1-44.9); Mean Corpuscular Hemoglobin 27.4 pg (25.0-34.0); Mean Corpuscular Hgb Conc 31.9 g/dL (32.0-36.0); Mean Platelet Volume 9.4 fL (9.4-12.3); Platelet Count 143 K/uL (130-400); RDW Coefficient of Variation 13.6 % (11.5-14.5); RDW Standard Deviation 42.8 fL (36.4-46.3); Red Blood Count 4.01 M/uL (3.93-5.22); White Blood Count 16.88 K/ul (4.8-10.8)
[2022-04-19 05:17] LABS: BUN Creatinine Ratio 20.5 (10-20); Calcium 7.9 mg/dl (8.5-10.1); Creatinine Clr Calc Pharmacy 64.9 ml/min; Est GFR (African American) 80.5 ml/min; Est GFR (Non-African American) 69.4 ml/min; Magnesium 1.7 mg/dl (1.7-2.4); Phosphorus 3.2 mg/dl (2.5-4.9); Potassium 4.3 mmol/L (3.5-5.1)
[2022-04-19 05:32] LABS: A calco-baum cmplx NotReported Not Detected (NotDetected); Bact fragilis Not Reported Not Detected (NotDetected); C auris Not Reported Not Detected (NotDetected); CTX-M Resistant Gene Not Detected (NotDetected); Calbicans Not Reported Not Detected (NotDetected); Candida glabrata Not Reported Not Detected (NotDetected); Candida krusei Not Reported Not Detected (NotDetected); Cneoformans/gatti Not Reported Not Detected (NotDetected); Cparapsilosis Not Reported Not Detected (NotDetected); Ctropicalis Not Reported Not Detected (NotDetected); E cloacae compx Not Reported Not Detected (NotDetected); Efaecalis Not Reported Not Detected (NotDetected); Efaecium Not Reported Not Detected (NotDetected); Enterobacterales DETECTED (NotDetected); Enterobacterales Not Reported DETECTED (NotDetected); Escherichia coli Not Reported DETECTED (NotDetected); H influenzae Not Reported Not Detected (NotDetected); IMP Resistant Gene Not Detected (NotDetected); K aerogenes Not Reported Not Detected (NotDetected); KPC Resistant Gene Not Detected (NotDetected); Koxytoca Not Reported Not Detected (NotDetected); Kpneumoniae grp Not Reported Not Detected (NotDetected); Lmonocyt Not Reported Not Detected (NotDetected); N meningitidis Not Reported Not Detected (NotDetected); NDM Resistant Gene Not Detected (NotDetected); OXA 48 Like Resistant Gene Not Detected (NotDetected); P aeruginosa Not Reported Not Detected (NotDetected); Proteus spp Not Reported Not Detected (NotDetected); Salmonella spp Not Reported Not Detected (NotDetected); Smarcescens Not Reported Not Detected (NotDetected); Staph lugdunensis Not Reported Not Detected (NotDetected); Staph spp. Not Reported Not Detected (NotDetected); Staphaureus Not Reported Not Detected (NotDetected); Staphepi Not Reported Not Detected (NotDetected); Stenmaltophilia Not Reported Not Detected (NotDetected); Strep agal(GrpB) Not Reported Not Detected (NotDetected); Strep pneum Not Reported Not Detected (NotDetected); Strep pyog (GrpA) Not Reported Not Detected (NotDetected); Strep spp Not Reported Not Detected (NotDetected); VIM Resistant Gene Not Detected (NotDetected); mcr-1 Colistin Resistant Gene Not Detected (NotDetected)
--- NOTE | 2022-04-19 08:35 | Critical Care Progress Note ---
Date of Service April 19, 2022 Assessment & Plan (1) Septic shock: Plan: Reason Critically Ill: 62-year-old female with left ureteral stone with hydronephrosis admitted to the ICU post ureteral stent and now in septic shock requiring vasopressor support. Neuro - Paraplegia at baseline, no acute issues Cardiac - Shocksuspect this is secondary to sepsis. See ID for treatment below -No cardiac history. EKG unremarkable although troponin mildly elevated, now downtrending -Hypotension unresponsive to fluid bolus, started vasopressor support. Continue Levophed and titrate for maps greater than 65 -Random cortisol wnl -Continuous monitor on telemetry. Continuous hemodynamic monitoring with arterial line Respiratory - No history of pulmonary disease. Currently maintaining oxygen saturation on 2L NC. Continuous monitoring pulse ox GI - Clear liqui diet, advance as tolerated RENAL/LYTES - Creatinine within normal limits at 0.88. Continue with IV fluid resuscitation. Monitor routine BMP and replete electrolytes as indicated received 2g Mg and 1g Calcium today - Neurogenic bladderpatient self caths at home. Continue Kahn for now. Strict I's and O's Started pyridium Continue tolteradine ENDO - No history of diabetes or thyroid disease ICU hyperglycemic protocol HEME - H&H stable, monitor routine CBC ID - Sepsislikely urinary source given left hydronephrosis from obstructive stone. -Procalcitonin 38.77, lactate 1.6 -Urinalysis positive for bacteria and nitrates. Urine culture pending. Blood culture pending -Patient does have history of MRSA, resistant E. coli and Klebsiella. Placed on contact precautions -Was started on daptomycin and cefepime, dc both switch to rocephin LINES/IV ACCESS - Peripheral IVs, A-line DVT PROPHYLAXIS - SCDs (2) Elevated troponin: (3) Hydronephrosis with urinary obstruction due to ureteral calculus: Admission and Anticipated Discharge Date Admission Date: April 18, 2022 Supervising Physician Co-Signing Physician Notes Patient seen and examined with the resident/physician. Agree with the assessment and plan aside for any additions/exceptions noted: Blood cultures appear to be growing pansensitive E. coli. Will downgrade antibiotics from daptomycin and cefepime to Rocephin. Discussed with justice moreau. Also discussed in multidisciplinary rounds. Patient says she is feeling better, but having occasional bladder spasms. We will start Pyridium. Continue Detrol LA. Continue to wean Levophed as able. Maintain mean arterial pressures above 65. Patient is currently on the electrolyte protocol. Urine output appears adequate. Suspect can likely downgrade the patient out of the ICU later today. Advance diet as tolerated. Subjective 62yo Female seen at bedside, calm cooperative, states she still does not feel great but feelings of warmth/chills have improved. States her nausea has improved with the zofran, still has occasional headache. Patient states due to her T2-T4 spinal injury she has no movement or sensation below her breasts. Review of Systems Review of Systems: positive headache Negative fever chills Negative dizziness Negative chest pain palpitations SOB Negative nausea vomitting Physical Exam Constitutional: WD/WN, vitals as above Eyes: PERRL, conjunctivae normal, anicteric sclerae ENMT: external ear and nose normal, oropharynx normal Neck: trachea midline, no thyromegaly Respiratory: normal respiratory effort, lungs clear to auscultation Cardiovascular: RRR, no murmur, no edema Gastrointestinal (Abdomen): Inspection/Auscultation: abdomen normal to inspection; abdomen not distended Percussion/Palpation: abdomen soft Skin: no rashes, warm and dry Results & Data Results & Data ([facility]) Vital Signs (Past 12 Hours) Vital Signs Temp Pulse Resp BP Pulse Ox 04/19/22 04:00 70 21 100 04/19/22 04:00 130/72 04/19/22 03:30 61 20 100 04/19/22 03:30 124/71 04/19/22 03:00 59 L 19 100 04/19/22 03:00 121/72 04/19/22 02:30 63 19 100 04/19/22 02:30 122/72 04/19/22 02:00 62 20 100 04/19/22 02:00 112/70 04/19/22 01:30 64 2 L 100 04/19/22 01:30 115/67 04/19/22 01:00 64 3 L 99 04/19/22 01:00 110/64 04/19/22 00:30 69 18 99 04/19/22 00:30 106/60 04/19/22 00:17 114/53 L 04/19/22 00:17 79 20 100 04/19/22 00:00 72 21 100 04/19/22 00:00 36.7 C 114/66 04/18/22 23:45 110/63 04/18/22 23:45 75 19 100 04/18/22 23:30 75 19 100 04/18/22 23:30 105/60 04/18/22 23:15 105/58 L 04/18/22 23:15 75 16 100 04/18/22 23:00 77 20 100 04/18/22 23:00 106/61 04/18/22 22:45 105/55 L 04/18/22 22:45 75 20 100 04/18/22 22:30 79 20 100 04/18/22 22:30 102/57 L 04/18/22 22:15 102/58 L 04/18/22 22:15 80 19 100 04/18/22 22:00 79 18 100 04/18/22 22:00 98/58 L 04/19/22 00:00 79 04/18/22 21:45 80 19 100 04/18/22 21:45 100/58 L 04/18/22 21:30 81 19 100 04/18/22 21:30 100/61 04/18/22 21:15 80 19 100 04/18/22 21:15 94/54 L 04/18/22 21:00 83 18 100 04/18/22 21:00 106/60 04/18/22 20:45 86 23 100 04/18/22 20:45 99/56 L Laboratory Results 04/19/22 04/19/22 04/19/22 Range/Units 04:33 04:30 04:30 WBC (4.8-10.8) K/ul RBC (3.93-5.22) M/uL Hgb (12.0-16.0) g/dl Hct (34.1-44.9) % MCV (80.0-100.0) fL MCH (25.0-34.0) pg MCHC (32.0-36.0) g/dL RDW Std Deviation (36.4-46.3) fL RDW Coeff of Theo (11.5-14.5) % Plt Count (130-400) K/uL MPV (9.4-12.3) fL Immature Gran % (Auto) % Neut % (Auto) % Lymph % (Auto) % Perkins % (Auto) % Eos % (Auto) % Baso % (Auto) % Neut # (Auto) (1.4-6.5) K/uL Lymph # (Auto) (1.2-3.4) K/uL Perkins # (Auto) (0.24-0.82) K/uL Eos # (Auto) (0-0.50) K/uL Baso # (Auto) (0-0.2) K/uL Immature Gran # (Auto) (0.00-0.02) K/uL Dohle Bodies Sodium 139 (136-145) mmol/L Potassium 4.3 (3.5-5.1) mmol/L Chloride 110 H (98-107) mmol/L Carbon Dioxide 25 (21-32) mmol/L Anion Gap 4 (3-11) BUN 18 (6-23) mg/dl Creatinine 0.88 (0.6-1.2) mg/dl Est Cr Clr Drug Dosing 64.9 ml/min Est GFR ( Amer) 80.5 ml/min Est GFR (Non-Af Amer) 69.4 ml/min BUN/Creatinine Ratio 20.5 H (10-20) Glucose 125 H (70-99(Fasting)) mg/dl POC Glucose 124 H (70-99) mg/dl Lactate (0.4-2.0) mmol/L Calcium 7.9 L (8.5-10.1) mg/dl Phosphorus 3.2 (2.5-4.9) mg/dl Magnesium 1.7 (1.7-2.4) mg/dl Total Bilirubin (0.2-1.0) mg/dl AST (13-39) U/L ALT (7-52) U/L Alkaline Phosphatase (34-104) U/L Troponin I High Sens (0-14) pg/ml C-Reactive Protein (0-0.5) mg/dl Total Protein (6.0-8.3) gm/dl Albumin (3.4-5.0) gm/dl Globulin (2.5-4.0) gm/dl Albumin/Globulin Ratio (0.9-2) Procalcitonin 38.77 H (0-0.5) ng/ml Random Cortisol mcg/dl Urine Color Urine Appearance (Clear) Urine pH (4.5-7.5) Ur Specific [place]bee (1.000-1.030) Urine Protein (Negative) Urine Glucose (UA) (Negative) Urine Ketones (Negative) Urine Blood (Negative) Urine Nitrite (Negative) Urine Bilirubin (Negative) Urine Urobilinogen (Negative) Ur Leukocyte Esterase (Negative) Urine WBC (Auto) (0-5) /hpf Urine RBC (Auto) (0-4) /hpf U Hyaline Cast (Auto) (0-5) /lpf U Epithel Cells (Auto) (0-5) /lpf Urine Bacteria (Auto) (Negative) Nasal Screen MRSA (PCR) (Negative) Adenovirus (PCR) (NotDetected) B. pertussis DNA (PCR) (NotDetected) B.parapertussis DNA PCR (NotDetected) C. pneumoniae DNA (PCR) (NotDetected) Coronavirus OC43 (PCR) (NotDetected) Coronavirus HKU1 (PCR) (NotDetected) Coronavirus 229E (PCR) (NotDetected) SARS-CoV-2 (PCR) (NotDetected) Coronavirus NL63 (PCR) (NotDetected) Enterobacterales (PCR) (NotDetected) E. coli (PCR) (NotDetected) Human Metapneumovir PCR (NotDetected) Influenza Type A (PCR) (NotDetected) Influenza Type B (PCR) (NotDetected) M. pneumoniae (PCR) (NotDetected) Parainfluenza 1 (PCR) (NotDetected) Parainfluenza 2 (PCR) (NotDetected) Parainfluenza 3 (PCR) (NotDetected) Parainfluenza 4 (PCR) (NotDetected) RSV (PCR) (NotDetected) Entero/Rhino (PCR) (NotDetected) mcr-1 Colistin Res Gene PCR (NotDetected) blaIMP Car res Gene PCR (NotDetected) KPC-Carbap Res Gene PCR (NotDetected) blaNDM Car Res Gene PCR (NotDetected) OXA-48 Carbapenem Resis Gene (PCR) (NotDetected) blaVIM Car Res Gene PCR (NotDetected) CTX-M Gene Resistance (PCR) (NotDetected) Bld Cult ID Panel PCR (NotDetected) 04/19/22 04/19/22 04/19/22 Range/Units 04:30 00:12 00:12 WBC 16.88 H D (4.8-10.8) K/ul RBC 4.01 (3.93-5.22) M/uL Hgb 11.0 L (12.0-16.0) g/dl Hct 34.5 (34.1-44.9) % MCV 86.0 (80.0-100.0) fL MCH 27.4 (25.0-34.0) pg MCHC 31.9 L (32.0-36.0) g/dL RDW Std Deviation 42.8 (36.4-46.3) fL RDW Coeff of Theo 13.6 (11.5-14.5) % Plt Count 143 (130-400) K/uL MPV 9.4 (9.4-12.3) fL Immature Gran % (Auto) % Neut % (Auto) % Lymph % (Auto) % Perkins % (Auto) % Eos % (Auto) % Baso % (Auto) % Neut # (Auto) (1.4-6.5) K/uL Lymph # (Auto) (1.2-3.4) K/uL Perkins # (Auto) (0.24-0.82) K/uL Eos # (Auto) (0-0.50) K/uL Baso # (Auto) (0-0.2) K/uL Immature Gran # (Auto) (0.00-0.02) K/uL Dohle Bodies Sodium (136-145) mmol/L Potassium (3.5-5.1) mmol/L Chloride (98-107) mmol/L Carbon Dioxide (21-32) mmol/L Anion Gap (3-11) BUN (6-23) mg/dl Creatinine (0.6-1.2) mg/dl Est Cr Clr Drug Dosing ml/min Est GFR ( Amer) ml/min Est GFR (Non-Af Amer) ml/min BUN/Creatinine Ratio (10-20) Glucose (70-99(Fasting)) mg/dl POC Glucose (70-99) mg/dl Lactate 1.6 (0.4-2.0) mmol/L Calcium (8.5-10.1) mg/dl Phosphorus (2.5-4.9) mg/dl Magnesium (1.7-2.4) mg/dl Total Bilirubin (0.2-1.0) mg/dl AST (13-39) U/L ALT (7-52) U/L Alkaline Phosphatase (34-104) U/L Troponin I High Sens (0-14) pg/ml C-Reactive Protein (0-0.5) mg/dl Total Protein (6.0-8.3) gm/dl Albumin (3.4-5.0) gm/dl Globulin (2.5-4.0) gm/dl Albumin/Globulin Ratio (0.9-2) Procalcitonin (0-0.5) ng/ml Random Cortisol 25.13 mcg/dl Urine Color Urine Appearance (Clear) Urine pH (4.5-7.5) Ur Specific Bybee (1.000-1.030) Urine Protein (Negative) Urine Glucose (UA) (Negative) Urine Ketones (Negative) Urine Blood (Negative) Urine Nitrite (Negative) Urine Bilirubin (Negative) Urine Urobilinogen (Negative) Ur Leukocyte Esterase (Negative) Urine WBC (Auto) (0-5) /hpf Urine RBC (Auto) (0-4) /hpf U Hyaline Cast (Auto) (0-5) /lpf U Epithel Cells (Auto) (0-5) /lpf Urine Bacteria (Auto) (Negative) Nasal Screen MRSA (PCR) (Negative) Adenovirus (PCR) (NotDetected) B. pertussis DNA (PCR) (NotDetected) B.parapertussis DNA PCR (NotDetected) C. pneumoniae DNA (PCR) (NotDetected) Coronavirus OC43 (PCR) (NotDetected) Coronavirus HKU1 (PCR) (NotDetected) Coronavirus 229E (PCR) (NotDetected) SARS-CoV-2 (PCR) (NotDetected) Coronavirus NL63 (PCR) (NotDetected) Enterobacterales (PCR) (NotDetected) E. coli (PCR) (NotDetected) Human Metapneumovir PCR (NotDetected) Influenza Type A (PCR) (NotDetected) Influenza Type B (PCR) (NotDetected) M. pneumoniae (PCR) (NotDetected) Parainfluenza 1 (PCR) (NotDetected) Parainfluenza 2 (PCR) (NotDetected) Parainfluenza 3 (PCR) (NotDetected) Parainfluenza 4 (PCR) (NotDetected) RSV (PCR) (NotDetected) Entero/Rhino (PCR) (NotDetected) mcr-1 Colistin Res Gene PCR (NotDetected) blaIMP Car res Gene PCR (NotDetected) KPC-Carbap Res Gene PCR (NotDetected) blaNDM Car Res Gene PCR (NotDetected) OXA-48 Carbapenem Resis Gene (PCR) (NotDetected) blaVIM Car Res Gene PCR (NotDetected) CTX-M Gene Resistance (PCR) (NotDetected) Bld Cult ID Panel PCR (NotDetected) 04/18/22 04/18/22 04/18/22 Range/Units 20:45 20:05 16:39 WBC (4.8-10.8) K/ul RBC (3.93-5.22) M/uL Hgb (12.0-16.0) g/dl Hct (34.1-44.9) % MCV (80.0-100.0) fL MCH (25.0-34.0) pg MCHC (32.0-36.0) g/dL RDW Std Deviation (36.4-46.3) fL RDW Coeff of Theo (11.5-14.5) % Plt Count (130-400) K/uL MPV (9.4-12.3) fL Immature Gran % (Auto) % Neut % (Auto) % Lymph % (Auto) % Perkins % (Auto) % Eos % (Auto) % Baso % (Auto) % Neut # (Auto) (1.4-6.5) K/uL Lymph # (Auto) (1.2-3.4) K/uL Perkins # (Auto) (0.24-0.82) K/uL Eos # (Auto) (0-0.50) K/uL Baso # (Auto) (0-0.2) K/uL Immature Gran # (Auto) (0.00-0.02) K/uL Dohle Bodies Sodium (136-145) mmol/L Potassium (3.5-5.1) mmol/L Chloride (98-107) mmol/L Carbon Dioxide (21-32) mmol/L Anion Gap (3-11) BUN (6-23) mg/dl Creatinine (0.6-1.2) mg/dl Est Cr Clr Drug Dosing ml/min Est GFR ( Amer) ml/min Est GFR (Non-Af Amer) ml/min BUN/Creatinine Ratio (10-20) Glucose (70-99(Fasting)) mg/dl POC Glucose (70-99) mg/dl Lactate (0.4-2.0) mmol/L Calcium (8.5-10.1) mg/dl Phosphorus (2.5-4.9) mg/dl Magnesium (1.7-2.4) mg/dl Total Bilirubin (0.2-1.0) mg/dl AST (13-39) U/L ALT (7-52) U/L Alkaline Phosphatase (34-104) U/L Troponin I High Sens 26.3 H D (0-14) pg/ml C-Reactive Protein (0-0.5) mg/dl Total Protein (6.0-8.3) gm/dl Albumin (3.4-5.0) gm/dl Globulin (2.5-4.0) gm/dl Albumin/Globulin Ratio (0.9-2) Procalcitonin (0-0.5) ng/ml Random Cortisol mcg/dl Urine Color Urine Appearance (Clear) Urine pH (4.5-7.5) Ur Specific [place]bee (1.000-1.030) Urine Protein (Negative) Urine Glucose (UA) (Negative) Urine Ketones (Negative) Urine Blood (Negative) Urine Nitrite (Negative) Urine Bilirubin (Negative) Urine Urobilinogen (Negative) Ur Leukocyte Esterase (Negative) Urine WBC (Auto) (0-5) /hpf Urine RBC (Auto) (0-4) /hpf U Hyaline Cast (Auto) (0-5) /lpf U Epithel Cells (Auto) (0-5) /lpf Urine Bacteria (Auto) (Negative) Nasal Screen MRSA (PCR) Positive A (Negative) Adenovirus (PCR) Not Detected (NotDetected) B. pertussis DNA (PCR) Not Detected (NotDetected) B.parapertussis DNA PCR Not Detected (NotDetected) C. pneumoniae DNA (PCR) Not Detected (NotDetected) Coronavirus OC43 (PCR) Not Detected (NotDetected) Coronavirus HKU1 (PCR) Not Detected (NotDetected) Coronavirus 229E (PCR) Not Detected (NotDetected) SARS-CoV-2 (PCR) Not Detected (NotDetected) Coronavirus NL63 (PCR) Not Detected (NotDetected) Enterobacterales (PCR) (NotDetected) E. coli (PCR) (NotDetected) Human Metapneumovir PCR Not Detected (NotDetected) Influenza Type A (PCR) Not Detected (NotDetected) Influenza Type B (PCR) Not Detected (NotDetected) M. pneumoniae (PCR) Not Detected (NotDetected) Parainfluenza 1 (PCR) Not Detected (NotDetected) Parainfluenza 2 (PCR) Not Detected (NotDetected) Parainfluenza 3 (PCR) Not Detected (NotDetected) Parainfluenza 4 (PCR) Not Detected (NotDetected) RSV (PCR) Not Detected (NotDetected) Entero/Rhino (PCR) Not Detected (NotDetected) mcr-1 Colistin Res Gene PCR (NotDetected) blaIMP Car res Gene PCR (NotDetected) KPC-Carbap Res Gene PCR (NotDetected) blaNDM Car Res Gene PCR (NotDetected) OXA-48 Carbapenem Resis Gene (PCR) (NotDetected) blaVIM Car Res Gene PCR (NotDetected) CTX-M Gene Resistance (PCR) (NotDetected) Bld Cult ID Panel PCR (NotDetected) 04/18/22 04/18/22 04/18/22 Range/Units 16:38 16:05 16:05 WBC (4.8-10.8) K/ul RBC (3.93-5.22) M/uL Hgb (12.0-16.0) g/dl Hct (34.1-44.9) % MCV (80.0-100.0) fL MCH (25.0-34.0) pg MCHC (32.0-36.0) g/dL RDW Std Deviation (36.4-46.3) fL RDW Coeff of Theo (11.5-14.5) % Plt Count (130-400) K/uL MPV (9.4-12.3) fL Immature Gran % (Auto) % Neut % (Auto) % Lymph % (Auto) % Perkins % (Auto) % Eos % (Auto) % Baso % (Auto) % Neut # (Auto) (1.4-6.5) K/uL Lymph # (Auto) (1.2-3.4) K/uL Perkins # (Auto) (0.24-0.82) K/uL Eos # (Auto) (0-0.50) K/uL Baso # (Auto) (0-0.2) K/uL Immature Gran # (Auto) (0.00-0.02) K/uL Dohle Bodies Sodium (136-145) mmol/L Potassium (3.5-5.1) mmol/L Chloride (98-107) mmol/L Carbon Dioxide (21-32) mmol/L Anion Gap (3-11) BUN (6-23) mg/dl Creatinine (0.6-1.2) mg/dl Est Cr Clr Drug Dosing ml/min Est GFR ( Amer) ml/min Est GFR (Non-Af Amer) ml/min BUN/Creatinine Ratio (10-20) Glucose (70-99(Fasting)) mg/dl POC Glucose (70-99) mg/dl Lactate 4.5 H* (0.4-2.0) mmol/L Calcium (8.5-10.1) mg/dl Phosphorus (2.5-4.9) mg/dl Magnesium (1.7-2.4) mg/dl Total Bilirubin (0.2-1.0) mg/dl AST (13-39) U/L ALT (7-52) U/L Alkaline Phosphatase (34-104) U/L Troponin I High Sens (0-14) pg/ml C-Reactive Protein (0-0.5) mg/dl Total Protein (6.0-8.3) gm/dl Albumin (3.4-5.0) gm/dl Globulin (2.5-4.0) gm/dl Albumin/Globulin Ratio (0.9-2) Procalcitonin (0-0.5) ng/ml Random Cortisol mcg/dl Urine Color Yellow Urine Appearance Turbid A (Clear) Urine pH 6.5 (4.5-7.5) Ur Specific [place]bee 1.013 (1.000-1.030) Urine Protein 1+ H (Negative) Urine Glucose (UA) Negative (Negative) Urine Ketones Negative (Negative) Urine Blood 2+ H (Negative) Urine Nitrite Positive A (Negative) Urine Bilirubin Negative (Negative) Urine Urobilinogen Negative (Negative) Ur Leukocyte Esterase 3+ H (Negative) Urine WBC (Auto) >30 H (0-5) /hpf Urine RBC (Auto) 10-30 H (0-4) /hpf U Hyaline Cast (Auto) 0 (0-5) /lpf U Epithel Cells (Auto) 20-30 H (0-5) /lpf Urine Bacteria (Auto) 4+ H (Negative) Nasal Screen MRSA (PCR) (Negative) Adenovirus (PCR) (NotDetected) B. pertussis DNA (PCR) (NotDetected) B.parapertussis DNA PCR (NotDetected) C. pneumoniae DNA (PCR) (NotDetected) Coronavirus OC43 (PCR) (NotDetected) Coronavirus HKU1 (PCR) (NotDetected) Coronavirus 229E (PCR) (NotDetected) SARS-CoV-2 (PCR) (NotDetected) Coronavirus NL63 (PCR) (NotDetected) Enterobacterales (PCR) DETECTED A (NotDetected) E. coli (PCR) DETECTED A (NotDetected) Human Metapneumovir PCR (NotDetected) Influenza Type A (PCR) (NotDetected) Influenza Type B (PCR) (NotDetected) M. pneumoniae (PCR) (NotDetected) Parainfluenza 1 (PCR) (NotDetected) Parainfluenza 2 (PCR) (NotDetected) Parainfluenza 3 (PCR) (NotDetected) Parainfluenza 4 (PCR) (NotDetected) RSV (PCR) (NotDetected) Entero/Rhino (PCR) (NotDetected) mcr-1 Colistin Res Gene PCR Not Detected (NotDetected) blaIMP Car res Gene PCR Not Detected (NotDetected) KPC-Carbap Res Gene PCR Not Detected (NotDetected) blaNDM Car Res Gene PCR Not Detected (NotDetected) OXA-48 Carbapenem Resis Gene (PCR) Not Detected (NotDetected) blaVIM Car Res Gene PCR Not Detected (NotDetected) CTX-M Gene Resistance (PCR) Not Detected (NotDetected) Bld Cult ID Panel PCR See PCR Comment (NotDetected) 04/18/22 04/18/22 04/18/22 Range/Units 16:05 16:05 16:05 WBC 2.05 L (4.8-10.8) K/ul RBC 4.52 (3.93-5.22) M/uL Hgb 12.4 (12.0-16.0) g/dl Hct 37.7 (34.1-44.9) % MCV 83.4 (80.0-100.0) fL MCH 27.4 (25.0-34.0) pg MCHC 32.9 (32.0-36.0) g/dL RDW Std Deviation 40.6 (36.4-46.3) fL RDW Coeff of Theo 13.4 (11.5-14.5) % Plt Count 118 L (130-400) K/uL MPV 9.6 (9.4-12.3) fL Immature Gran % (Auto) 0.5 % Neut % (Auto) 90.2 % Lymph % (Auto) 8.8 % Perkins % (Auto) 0.5 % Eos % (Auto) 0.0 % Baso % (Auto) 0.0 % Neut # (Auto) 1.85 (1.4-6.5) K/uL Lymph # (Auto) 0.18 L (1.2-3.4) K/uL Perkins # (Auto) 0.01 L (0.24-0.82) K/uL Eos # (Auto) 0.00 (0-0.50) K/uL Baso # (Auto) 0.00 (0-0.2) K/uL Immature Gran # (Auto) 0.01 (0.00-0.02) K/uL Dohle Bodies 1+ Sodium 136 (136-145) mmol/L Potassium 3.6 (3.5-5.1) mmol/L Chloride 105 (98-107) mmol/L Carbon Dioxide 21 (21-32) mmol/L Anion Gap 10 (3-11) BUN 20 (6-23) mg/dl Creatinine 1.05 (0.6-1.2) mg/dl Est Cr Clr Drug Dosing 59.0 ml/min Est GFR ( Amer) 65.0 ml/min Est GFR (Non-Af Amer) 56.1 ml/min BUN/Creatinine Ratio 19.0 (10-20) Glucose 128 H (70-99(Fasting)) mg/dl POC Glucose (70-99) mg/dl Lactate (0.4-2.0) mmol/L Calcium 8.8 (8.5-10.1) mg/dl Phosphorus (2.5-4.9) mg/dl Magnesium (1.7-2.4) mg/dl Total Bilirubin 1.3 H (0.2-1.0) mg/dl AST 54 H (13-39) U/L ALT 36 (7-52) U/L Alkaline Phosphatase 188 H (34-104) U/L Troponin I High Sens 50.1 H* (0-14) pg/ml C-Reactive Protein 16.78 H (0-0.5) mg/dl Total Protein 6.2 (6.0-8.3) gm/dl Albumin 3.4 (3.4-5.0) gm/dl Globulin 2.8 (2.5-4.0) gm/dl Albumin/Globulin Ratio 1.2 (0.9-2) Procalcitonin 20.82 H (0-0.5) ng/ml Random Cortisol mcg/dl Urine Color Urine Appearance (Clear) Urine pH (4.5-7.5) Ur Specific [place] (1.000-1.030) Urine Protein (Negative) Urine Glucose (UA) (Negative) Urine Ketones (Negative) Urine Blood (Negative) Urine Nitrite (Negative) Urine Bilirubin (Negative) Urine Urobilinogen (Negative) Ur Leukocyte Esterase (Negative) Urine WBC (Auto) (0-5) /hpf Urine RBC (Auto) (0-4) /hpf U Hyaline Cast (Auto) (0-5) /lpf U Epithel Cells (Auto) (0-5) /lpf Urine Bacteria (Auto) (Negative) Nasal Screen MRSA (PCR) (Negative) Adenovirus (PCR) (NotDetected) B. pertussis DNA (PCR) (NotDetected) B.parapertussis DNA PCR (NotDetected) C. pneumoniae DNA (PCR) (NotDetected) Coronavirus OC43 (PCR) (NotDetected) Coronavirus HKU1 (PCR) (NotDetected) Coronavirus 229E (PCR) (NotDetected) SARS-CoV-2 (PCR) (NotDetected) Coronavirus NL63 (PCR) (NotDetected) Enterobacterales (PCR) (NotDetected) E. coli (PCR) (NotDetected) Human Metapneumovir PCR (NotDetected) Influenza Type A (PCR) (NotDetected) Influenza Type B (PCR) (NotDetected) M. pneumoniae (PCR) (NotDetected) Parainfluenza 1 (PCR) (NotDetected) Parainfluenza 2 (PCR) (NotDetected) Parainfluenza 3 (PCR) (NotDetected) Parainfluenza 4 (PCR) (NotDetected) RSV (PCR) (NotDetected) Entero/Rhino (PCR) (NotDetected) mcr-1 Colistin Res Gene PCR (NotDetected) blaIMP Car res Gene PCR (NotDetected) KPC-Carbap Res Gene PCR (NotDetected) blaNDM Car Res Gene PCR (NotDetected) OXA-48 Carbapenem Resis Gene (PCR) (NotDetected) blaVIM Car Res Gene PCR (NotDetected) CTX-M Gene Resistance (PCR) (NotDetected) Bld Cult ID Panel PCR (NotDetected) Resident Activity Tracking Resident Involvement: Resident Care Provided Care Provided: Adult Hospital Medicine
[2022-04-19] MEDS ORDERED: STAT IV STA (08:36)
[2022-04-19] MEDS: MAGNESIUM SULFATE / D5W 1 GM/100 ML BAG IV SCH ×2 (08:36→11:04)
[2022-04-19] MEDS: ICU Protocol for HYPERglycemia SCH ×3 (08:44→17:28)
[2022-04-19] MEDS ORDERED: CALCIUM GLUCONATE 10% 1,000 MG in DEXTROSE 5% 50 ML IV ONE (08:45)
--- NOTE | 2022-04-19 08:54 | Urology Progress Note ---
Date of Service April 19, 2022 Assessment & Plan (1) Sepsis: (2) UTI (urinary tract infection): (3) Left ureteral stone: Plan: - Pt POD#1 s/p cystoscopy and left ureteral stent secondary to left ureteral stone and sepsis. - Subjectively feeling better today. Remains in ICU on Norepinephrine. - Afebrile overnight, lab work reviewed - creatinine 0.88, WBC increased to 16.88. - Urine culture pending, blood cultures showing gram-negative bacilli. - Currently on Daptomycin and Cefepime. Follow cultures and narrow per sensitivity data. - Tolerating left ureteral stent with minimal bother, notes spasms. - Recommend addition of Oxybutynin for spasms/stent management, can also try Pyridium. - Maintain Kahn catheter for maximum drainage. - Expected clinical course reviewed, all questions answered. - will continue to follow. Admission and Anticipated Discharge Date Admission Date: April 18, 2022 Subjective Patient seen and examined at bedside this morning. She is awake, alert and resting in bed. No acute issues overnight. Subjectively feeling better today. Reports headache and fatigue. No fever or chills. She reports left sided discomfort/spasms. Kahn intact and draining clear yellow urine with mild sediment. No nausea or vomiting. Review of Systems Constitutional: as per Subjective / HPI Gastrointestinal: as per Subjective / HPI Genitourinary: as per Subjective / HPI Physical Exam Constitutional: well developed and well nourished; no acute distress Respiratory: no respiratory distress and no labored breathing O2 via nasal cannula Gastrointestinal (Abdomen): Inspection/Auscultation: abdomen normal to inspection; abdomen not distended Percussion/Palpation: abdomen soft; abdomen nontender Neurologic: awake Psychiatric: Orientation: alert and oriented x 3 Genitourinary: Kahn intact and draining clear yellow urine with sediment Results & Data ([facility]) Vital Signs (Past 12 Hours) Vital Signs Temp Pulse Resp BP Pulse Ox 04/19/22 04:00 70 21 100 04/19/22 04:00 130/72 04/19/22 03:30 61 20 100 04/19/22 03:30 124/71 04/19/22 03:00 59 L 19 100 04/19/22 03:00 121/72 04/19/22 02:30 63 19 100 04/19/22 02:30 122/72 04/19/22 02:00 62 20 100 04/19/22 02:00 112/70 04/19/22 01:30 64 2 L 100 04/19/22 01:30 115/67 04/19/22 01:00 64 3 L 99 04/19/22 01:00 110/64 04/19/22 00:30 69 18 99 04/19/22 00:30 106/60 04/19/22 00:17 114/53 L 04/19/22 00:17 79 20 100 04/19/22 00:00 72 21 100 04/19/22 00:00 36.7 C 114/66 04/18/22 23:45 110/63 04/18/22 23:45 75 19 100 04/18/22 23:30 75 19 100 04/18/22 23:30 105/60 04/18/22 23:15 105/58 L 04/18/22 23:15 75 16 100 04/18/22 23:00 77 20 100 04/18/22 23:00 106/61 04/18/22 22:45 105/55 L 04/18/22 22:45 75 20 100 04/18/22 22:30 79 20 100 04/18/22 22:30 102/57 L 04/18/22 22:15 102/58 L 04/18/22 22:15 80 19 100 04/18/22 22:00 79 18 100 04/18/22 22:00 98/58 L 04/19/22 00:00 79 04/18/22 21:45 80 19 100 04/18/22 21:45 100/58 L 04/18/22 21:30 81 19 100 04/18/22 21:30 100/61 04/18/22 21:15 80 19 100 04/18/22 21:15 94/54 L 04/18/22 21:00 83 18 100 04/18/22 21:00 106/60 PG Care Time/CCT Total # of Minutes Spent Total Time Spent with Patient: Total time spent is greater than 50% in coordination of care (as documented) at patient's floor/unit and/or counseling patient: Coding Level of Care Code 47047 Subseq Hosp Care Lvl 2 Diagnoses Sepsis A41.9 UTI (urinary tract infection) N39.0 Left ureteral stone N20.1
--- NOTE | 2022-04-19 10:53 | Billing Data ---
Date of Service April 19, 2022 Coding Level of Care Code 88639 Subseq Hosp Care Lvl 3
[2022-04-19] MEDS: cefTRIAXone SODIUM 2,000 MG in DEXTROSE 5% 50 ML IV SCH (11:06)
[2022-04-19] MEDS: HEPARIN SOD 5,000 UNIT/0.5 ML VIAL SQ SCH ×2 (11:06→20:20)
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
[2022-04-19] MEDS ORDERED: TOLTERODINE TARTRATE LA 4 MG CAPCR PO ONE (11:14)
[2022-04-19] MEDS ORDERED: PHENAZOPYRIDINE HCL 200 MG TAB PO PRN (11:16)
[2022-04-19] MEDS ORDERED: PHENAZOPYRIDINE HCL 200 MG TAB PO SCH (14:00)
[2022-04-19] MEDS ORDERED: DAPTOmycin 425 MG in SYRINGE 0 ML IV SCH (16:00)
--- NOTE | 2022-04-19 16:48 | Electrocardiogram Report ---
Test Reason : Blood Pressure : / mmHG Vent. Rate : 098 BPM Atrial Rate : 098 BPM P-R Int : 124 ms QRS Dur : 126 ms QT Int : 370 ms P-R-T Axes : 077 -24 077 degrees QTc Int : 472 ms Sinus rhythm with Premature supraventricular complexes Right bundle branch block Abnormal ECG When compared with ECG of 15-JAN-2021 11:48, Premature supraventricular complexes are now Present Right bundle branch block has replaced Incomplete right bundle branch block T wave inversion more evident in Anterior leads Confirmed by Charly Fan ([id number]) on 04/19/2022 4:48:25 PM Referred By: Iván Keyes Confirmed By:Charly Fan
--- NOTE | 2022-04-19 17:03 | Electrocardiogram Report ---
Test Reason : Blood Pressure : / mmHG Vent. Rate : 059 BPM Atrial Rate : 059 BPM P-R Int : 138 ms QRS Dur : 088 ms QT Int : 450 ms P-R-T Axes : 081 -07 031 degrees QTc Int : 445 ms Sinus bradycardia Otherwise normal ECG When compared with ECG of 18-APR-2022 15:24, (unconfirmed) Premature supraventricular complexes are no longer Present Vent. rate has decreased BY 39 BPM Right bundle branch block is no longer Present Confirmed by Charly Fan ([id number]) on 04/19/2022 5:03:02 PM Referred By: Iván Keyes Confirmed By:Charly Fan
[2022-04-19] MEDS ORDERED: TOLTERODINE TARTRATE LA 4 MG CAPCR PO SCH (21:00)
[2022-04-20 06:00] LABS: Hematocrit (blood only) 31.9 % (34.1-44.9); Hemoglobin 10.3 g/dl (12.0-16.0); Mean Corpuscular Hemoglobin 27.1 pg (25.0-34.0); Mean Corpuscular Hgb Conc 32.3 g/dL (32.0-36.0); Mean Corpuscular Volume 83.9 fL (80.0-100.0); Mean Platelet Volume 10.4 fL (9.4-12.3); Platelet Count 105 K/uL (130-400); RDW Coefficient of Variation 13.5 % (11.5-14.5); RDW Standard Deviation 41.8 fL (36.4-46.3); White Blood Count 7.97 K/ul (4.8-10.8)
[2022-04-20 06:33] LABS: Albumin Level 2.6 gm/dl (3.4-5.0); BUN Creatinine Ratio 20.3 (10-20); Bilirubin,Total 0.3 mg/dl (0.2-1.0); Calcium 8.1 mg/dl (8.5-10.1); Creatinine Clr Calc Pharmacy 72.7 ml/min; Est GFR (African American) 91.7 ml/min; Est GFR (Non-African American) 79.1 ml/min; Globulin 2.7 gm/dl (2.5-4.0); Magnesium 2.1 mg/dl (1.7-2.4); Phosphorus 1.8 mg/dl (2.5-4.9); Potassium 3.5 mmol/L (3.5-5.1); Total Protein 5.3 gm/dl (6.0-8.3)
[2022-04-20] MEDS: HEPARIN SOD 5,000 UNIT/0.5 ML VIAL SQ SCH ×2 (08:32→19:25)
[2022-04-20] MEDS: POT PHOSPHATE MONOBASIC W/ SOD TAB PO SCH ×4 (08:32→19:26)
[2022-04-20] MEDS: cefTRIAXone SODIUM 2,000 MG in DEXTROSE 5% 50 ML IV SCH (10:00)
[2022-04-20] MEDS ORDERED: bisacodyL 10 MG SUPP PR PRN (11:13)
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
--- NOTE | 2022-04-20 12:16 | Urology Progress Note ---
Date of Service April 20, 2022 Assessment & Plan (1) Septic shock: (2) Neurogenic bladder: (3) Left ureteral stone: Plan Recovering from urosepsis secondary to an obstructing left ureteral calculus in the setting of paraplegia and neurogenic bladder Appears that she had a pansensitive E. coli Clinically she has improved drastically Tentative plan will be to continue prolonged antibiotic course and treat her stones towards the end of that antibiotic courseas an outpatient Will continue to follow along supportively now Admission and Anticipated Discharge Date Admission Date: April 18, 2022 Subjective 62-year-old status post emergent stent placement this week and Fortunately she is doing very well now She is off pressors She subjectively feels much better She has her creatinine back to baseline and her leukocytosis is resolved Cultures thus far showing E. colipansensitive Physical Exam Physical Exam: Abdomen soft, nontender Results & Data ([facility]) Vital Signs (Past 12 Hours) Vital Signs Temp Pulse Resp BP Pulse Ox O2 Del Method 04/20/22 08:37 72 15 103/64 99 Room Air 04/20/22 08:37 36.6 C 04/20/22 03:51 78 24 98 04/20/22 03:51 36.7 C 111/59 L PG Care Time/CCT Total # of Minutes Spent Total Time Spent with Patient: Total time spent is greater than 50% in coordination of care (as documented) at patient's floor/unit and/or counseling patient: Coding Level of Care Code 03229 Subseq Hosp Care Lvl 2 Diagnoses Septic shock A41.9; R65.21 Neurogenic bladder N31.9 Left ureteral stone N20.1
[2022-04-20] MEDS: ADVANCED PROBIOTIC 1250 MG CAPSULE PO SCH (12:38)
--- NOTE | 2022-04-20 16:39 | Electrocardiogram Report ---
Test Reason : Blood Pressure : / mmHG Vent. Rate : 067 BPM Atrial Rate : 067 BPM P-R Int : 142 ms QRS Dur : 090 ms QT Int : 430 ms P-R-T Axes : 073 004 032 degrees QTc Int : 454 ms Sinus rhythm with Premature atrial complexes Low voltage QRS Nonspecific T wave abnormality Abnormal ECG When compared with ECG of 19-APR-2022 04:39, Premature atrial complexes are now Present Confirmed by Charly Fan ([id number]) on 04/20/2022 4:38:53 PM Referred By: Ivná Keyes Confirmed By:Charly Fan
[2022-04-20] MEDS: TOLTERODINE TARTRATE LA 4 MG CAPCR PO SCH (19:27)
[2022-04-21 05:49] LABS: Hematocrit (blood only) 32.9 % (34.1-44.9); Hemoglobin 10.7 g/dl (12.0-16.0); Mean Platelet Volume 10.5 fL (9.4-12.3); Platelet Count 118 K/uL (130-400); White Blood Count 4.59 K/ul (4.8-10.8)
[2022-04-21 06:12] LABS: Calcium 8.1 mg/dl (8.5-10.1); Creatinine Clr Calc Pharmacy 94.1 ml/min; Est GFR (Non-African American) 95.8 ml/min; Potassium 3.4 mmol/L (3.5-5.1)
[2022-04-21 06:32] LABS: Mean Corpuscular Hemoglobin 26.9 pg (25.0-34.0); Mean Corpuscular Hgb Conc 32.5 g/dL (32.0-36.0); Mean Corpuscular Volume 82.7 fL (80.0-100.0); Platelet Estimate Decreased (Normal); RDW Coefficient of Variation 13.4 % (11.5-14.5); RDW Standard Deviation 40.9 fL (36.4-46.3); Red Blood Count 3.98 M/uL (3.93-5.22)
[2022-04-21] MEDS: HEPARIN SOD 5,000 UNIT/0.5 ML VIAL SQ SCH ×2 (08:59→19:52)
[2022-04-21] MEDS: POT PHOSPHATE MONOBASIC W/ SOD TAB PO SCH ×4 (08:59→19:55)
[2022-04-21] MEDS: ADVANCED PROBIOTIC 1250 MG CAPSULE PO SCH (08:59)
[2022-04-21] MEDS: POTASSIUM CHLORIDE CRTAB 20 MEQ TABCR PO SCH ×3 (09:04→19:54)
[2022-04-21] MEDS: CIPROFLOXACIN / D5W 400 MG/200 ML BAG IV SCH ×2 (09:29→19:40)
[2022-04-21] MEDS: TOLTERODINE TARTRATE LA 4 MG CAPCR PO SCH ×2 (19:55→20:49)
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
[2022-04-22 08:05] LABS: Hematocrit (blood only) 33.6 % (34.1-44.9); Hemoglobin 10.9 g/dl (12.0-16.0); Mean Corpuscular Hgb Conc 32.4 g/dL (32.0-36.0); Mean Corpuscular Volume 83.2 fL (80.0-100.0); Platelet Count 139 K/uL (130-400); RDW Coefficient of Variation 13.4 % (11.5-14.5); RDW Standard Deviation 41.1 fL (36.4-46.3); Red Blood Count 4.04 M/uL (3.93-5.22)
[2022-04-22] MEDS: ADVANCED PROBIOTIC 1250 MG CAPSULE PO SCH (08:34)
[2022-04-22] MEDS: POT PHOSPHATE MONOBASIC W/ SOD TAB PO SCH (08:34)
[2022-04-22] MEDS: HEPARIN SOD 5,000 UNIT/0.5 ML VIAL SQ SCH (08:34)
[2022-04-22 08:41] LABS: BUN Creatinine Ratio 16.9 (10-20); Calcium 8.6 mg/dl (8.5-10.1); Creatinine Clr Calc Pharmacy 97.3 ml/min; Est GFR (African American) 112.3 ml/min; Est GFR (Non-African American) 96.9 ml/min; Potassium 4.3 mmol/L (3.5-5.1)
[2022-04-22] MEDS ORDERED: CIPROFLOXACIN 500 MG TAB PO SCH (09:00)
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
== END 2022-04-22 18:01 | disposition home or self-care (01) | DRG 853 ==
LOC: ED 14:49 → OR 17:50 → SUATTDRO 19:38 → 1E 19:38

== ENCOUNTER 2022-05-28 07:30 | Observation (INO) ==
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
[~2022-05-28 07:30] MED LIST changes: +AMPICILLIN 1,000 MG in SODIUM CHLOR 0.9% AD-VAN 50 ML IV SCH; -BISA10SU3 PR; -DICL1GEL28 TOP; +GENTAMICIN SULFATE 80 MG in DEXTROSE 5% 100 ML IV SCH; -IBUP-1050 PO; +LR 15ML/HR IV SCH; -MISCCAP80 PO; -POTA1080 PO; -TOLT4CAP PO; +VANCOMYCIN HCL 1,000 MG/270 ML BAG IV SCH
[2022-05-28] MEDS ORDERED: MIDAZOLAM HCL 1 MG/ML 2ML VIAL ONE (09:25)
[2022-05-28] MEDS ORDERED: fentaNYL citrate 100 MCG/2 ML VIAL ONE (09:26)
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
[2022-05-28] MEDS ORDERED: PROPOFOL IV EMULSION 10 MG/ML 20 ML VIAL IV ONE (11:28)
[2022-05-28] MEDS ORDERED: DEXAMETHASONE SOD INJ 4 MG/ML VIAL ONE (11:28)
[2022-05-28] MEDS ORDERED: ONDANSETRON INJ 2 MG/ML 2 ML VIAL ONE (11:28)
--- NOTE | 2022-05-28 12:05 | Operative Report ---
PG Post Operative Report Pre & Post Diagnosis Operation Date: 05/28/22 09:25 Pre-Op Diagnosis: Bladder Calculi, Hydroneprhosis with Urinary Obstr Post-Op Diagnosis: Bladder Calculi, Hydroneprhosis with Urinary Obstr I identified the patient and participated in the time-out.: Yes Procedure Operation Date: 05/28/22 09:25 Actual Procedures p Cystoscopy, Ureteronephroscopy, Retrograde Pyelogram, Laser Destruction of the Stone, Insertion of Stent Catheter Left(Left) - Zach Weinstein MD s Cystolithopaxy (Bladder Stone Fragmentation and Removal)(Not Applicable) - Zach Weinstein MD Surgeon Zach Weinstein MD Pipe Threader none Estimated Blood Loss 0 Findings Consistent with Post-Op Diagnosis Specimens 1. Kidney stone 2. Bladder stone all for chemical analysis Description of Procedure The patient was identified in the preoperative holding area, appropriate informed consents were reviewed and completed and the patient was transferred to the operative suite. Upon arrival, appropriate antibiotics and anesthesia were administered and the patient was placed in dorsal lithotomy position and prepped and draped in sterile fashion. To begin the case I passed a 22 Egyptian cystoscope with 30 degree lens. Inspection revealed several large bladder calculi as well as a stent protruding from the left orifice. Fortunately the stent is not encrusted. The distal aspect of the stent was grasped and withdrawn to the meatus. Intubated with a sensor wire which advanced to the kidney without difficulty. There were several calcifications in the area of the kidney. I placed a second wire utilizing a 10 Egyptian double-lumen catheter. I then advanced a ureteral access sheath to the UPJ. A flexible ureteroscope was inserted and full renoscopy conducted. She had stone in the lower half of the kidney as well as a few small fragments higher in the kidney. Similar calcifications that were visualized could not be identified in the intraluminal aspect of the kidney. Following this inspection I utilized a 272 m laser fiber to fragment the biggest stones. I basketed out several other fragments and pas sed them off the table for chemical analysis. In the lower pole there appeared to be a cluster of stones that I searched for for several moments but was unable to truly visualize. I am uncertain if these are truly parenchymal stones versus in a small calyceal diverticulum or angled calyx that I could not visualize. All other aspects of the visualized kidney are clear of stone. A careful exit ureteroscopy was conducted while simultaneously withdrawing the ureteral access sheath. There is no ureteral trauma and the ureter is healthy. There were no stones. I subsequently placed a 6 Egyptian by 26 cm double-J ureteral stent seeing a good curl in the kidney as well as the bladder. I then reentered the bladder and utilized a 1000 m laser fiber to fragment the large bladder calculi. After irrigating all stone debris out of the bladder and confirming a clear bladder, I concluded the case. Bladder stone was passed off the table for chemical analysis. There were no complications, she was reversed of anesthesia and taken to the recovery room in stable condition. I attest to the content of the Intraoperative Record and any orders documented therein. Any exceptions are noted below.
--- NOTE | 2022-05-28 12:36 | Anesthesiology Progress Note ---
Date of Service May 28, 2022 Anesthesia Post Procedure Vital Signs Vital Signs: Temp Pulse Pulse Resp BP Pulse Ox O2 Del Method 05/28/22 12:20 48 L 15 140/82 95 Room Air 05/28/22 12:10 69 16 143/69 H 97 Room Air 05/28/22 12:00 54 L 15 119/78 100 Oxymask 05/28/22 11:52 36.2 C L 58 L 19 135/69 100 Oxymask 05/28/22 08:34 36.9 C 62 20 133/79 100 Room Air O2 Flow Rate 05/28/22 12:20 05/28/22 12:10 05/28/22 12:00 5 05/28/22 11:52 5 05/28/22 08:34 Transfer of Care Handoff Completed per policy Notes Mental Status: alert / awake / arousable and participated in evaluation Patient Amnestic to Procedure: Yes Nausea / Vomiting: adequately controlled Pain: adequately controlled Airway Patency, RR, SpO2: stable & adequate BP & HR: stable & adequate Hydration State: stable & adequate Anesthetic Complications: no major complications apparent
--- NOTE | 2022-05-28 13:02 | Fluoroscopy Report ---
FL retrograde includes kub CLINICAL HISTORY: LT CYSTO, LASER, STENT TECHNIQUE: 7 views were obtained with the C-arm in the OR with the above procedure. Total fluoroscopy time was 25.1 seconds. Radiation dose was 2.65 mGy. Comparison: Comparison is made to KUB fluoroscopy 04/18/2022 FINDINGS/IMPRESSION: Intraoperative images were obtained of left laser lithotripsy and stent exchange . Please correlate with intraoperative fluoroscopy and operative report. ACT 112: Negative or not required by law. Electronically signed by: Jairo Macdonald M.D. 05/28/2022 1:00 PM
[2022-05-28] MEDS ORDERED: VANCOMYCIN CONSULT ACTIVE PRN (14:29)
[2022-05-28] MEDS ORDERED: ONDANSETRON 4 MG OD TAB PO PRN (14:29)
[2022-05-28] MEDS ORDERED: KETOROLAC TROMETHAMINE 15 MG/ML VIAL IV PRN (14:29)
[2022-05-28] MEDS ORDERED: VANCOMYCIN HCL 1,000 MG in SODIUM CHLORIDE 0.9% 250 ML IV SCH (14:29)
--- NOTE | 2022-05-28 14:56 | Pharmacy Report ---
Pharmacy Vanc AUC Short Note - Date of Service May 28, 2022 - Assessment & Plan Assessment 62 year old F s/p cystoscopy/stent. Patient with complex past medical history and recent hospitalizations for kidney stones. Of note, paraplegic. Day # 1 of antimicrobial therapy. Plan Vancomycin * AUC/SHIRAZ is the preferred PK/PD target for vancomycin * AUC guided dosing is effective and associated with decreased risk of nephrotoxicity compared to traditional trough targets * Patient received loading dose of vancomycin 1000 mg preop this morning * Appears patients baseline Scr close to ~0.7 mg/dL * Ordered a stat Scr and plan to start vancomycin 750 mg iv q 12 hrs as long as baseline Scr is stable - this dosing is estimated to achieve a trough level of ~14 mcg/ml, target AUC/SHIRAZ of 400-600 mg/L.hr and may be associated with a 9 % risk of nephrotoxicity * Will consider checking a level in next 1-2 days to ensure stable Pharmacy will continue to follow and will adjust dose/frequency as necessary. Thank you.
[2022-05-28 15:37] LABS: Creatinine Clr Calc Pharmacy 81.1 ml/min; Est GFR (African American) 108.7 ml/min; Est GFR (Non-African American) 93.8 ml/min
[2022-05-28] MEDS: SODIUM CHLORIDE 0.9% 1000ML 1,000 ML IV SCH (15:48)
[2022-05-28] MEDS: VANCOMYCIN HCL 750 MG in SODIUM CHLORIDE 0.9% 250 ML IV SCH (16:50)
[2022-05-28] MEDS: POTASSIUM CITRATE 10 MEQ TAB PO SCH (20:31)
[2022-05-28] MEDS ORDERED: TOLTERODINE TARTRATE LA 4 MG CAPCR PO SCH (21:00)
[2022-05-29] MEDS: SODIUM CHLORIDE 0.9% 1000ML 1,000 ML IV SCH (03:38)
[2022-05-29] MEDS: VANCOMYCIN HCL 750 MG in SODIUM CHLORIDE 0.9% 250 ML IV SCH (03:38)
--- NOTE | 2022-05-29 08:14 | Urology Progress Note ---
Date of Service May 29, 2022 Assessment & Plan (1) Bladder calculi: (2) Left nephrolithiasis: Plan 62-year-old female who is status post cystoscopy with left ureteroscopy for stone treatment and stent placement in Cystolithalopaxy on 05/28/2022. Observed overnight due to history of infections associated with procedures Doing well today. Pain well controlled. Afebrile with stable vitals. Patient feels well enough to go home Remove Kahn catheter prior to discharge. Patient will return to CIC regimen at home Discharged with Percocet and doxycycline Follow-up scheduled with Dr. Weinstein Admission and Anticipated Discharge Date Admission Date: May 28, 2022 Subjective No acute issues overnight. Hemodynamically stable and afebrile. Labs show white blood cell count of 3.9, hemoglobin of 10.5 and a creatinine of 0.68 which is her baseline. Kahn catheter draining without issue. Review of Systems Review of Systems: 14 point review of systems negative outside of what is listed above in HPI Physical Exam Physical Exam: General: Alert and oriented, no acute distress HEENT: Normocephalic, mucous membranes moist Pulmonary: Nonlabored respirations Abdomen: Nondistended : Kahn catheter draining clear urine. Extremities: Moves all 4 spontaneously Neuro: No gross deficits Skin: Warm, dry, no rashes noted Results & Data ([facility]) Vital Signs (Past 12 Hours) Vital Signs Temp Pulse Resp BP Pulse Ox O2 Del Method 05/28/22 23:00 36.5 C 51 L 16 104/46 L 98 Room Air PG Care Time/CCT Total # of Minutes Spent Total Time Spent with Patient: Total time spent is greater than 50% in coordination of care (as documented) at patient's floor/unit and/or counseling patient: Coding Level of Care Code 52210 SUB INP/OBS CARE 2/35MIN Diagnoses Bladder calculi N21.0 Left nephrolithiasis N20.0
[2022-05-29 08:20] LABS: Hematocrit (blood only) 33.4 % (34.1-44.9); Hemoglobin 10.5 g/dl (12.0-16.0); Mean Corpuscular Hemoglobin 25.7 pg (25.0-34.0); Mean Corpuscular Hgb Conc 31.4 g/dL (32.0-36.0); Mean Corpuscular Volume 81.7 fL (80.0-100.0); Mean Platelet Volume 10.2 fL (9.4-12.3); Platelet Count 163 K/uL (130-400); RDW Coefficient of Variation 13.8 % (11.5-14.5); RDW Standard Deviation 40.8 fL (36.4-46.3); Red Blood Count 4.09 M/uL (3.93-5.22); White Blood Count 3.94 K/ul (4.8-10.8)
[2022-05-29 08:44] LABS: Albumin Globulin Ratio 1.3 (0.9-2); Albumin Level 3.3 gm/dl (3.4-5.0); BUN Creatinine Ratio 19.1 (10-20); Bilirubin,Total 0.3 mg/dl (0.2-1.0); Calcium 8.5 mg/dl (8.5-10.1); Creatinine Clr Calc Pharmacy 77.5 ml/min; Est GFR (African American) 107.1 ml/min; Est GFR (Non-African American) 92.4 ml/min; Globulin 2.5 gm/dl (2.5-4.0); Phosphorus 2.8 mg/dl (2.5-4.9); Potassium 4.2 mmol/L (3.5-5.1); Total Protein 5.8 gm/dl (6.0-8.3)
[2022-05-29] MEDS: POTASSIUM CITRATE 10 MEQ TAB PO SCH (09:06)
--- NOTE | 2022-06-01 07:45 | Discharge Summary ---
Date of Service June 01, 2022 Admission HPI Per Admitting Provider 62-year-old paraplegic female with a left ureteral stent in place secondary to presentation around 4 weeks ago with urosepsis She has numerous large stones within the kidney as well as the bladder. Her most recent culture shows staph species and she will be receiving vancomycin for perioperative antibiotic coverage and will plan to stay in the hospital after surgery She is here today for treatment of the bladder and kidney stones to the best of our ability. Principal Diagnosis kidney stones; UTI Discharge Data Allergies Allergy/AdvReac Type Severity Reaction Status Date / Time sulfamethoxazole Allergy Severe Redness of Verified 05/28/22 08:32 [From Bactrim] Skin trimethoprim [From Bactrim] Allergy Severe Redness of Verified 05/28/22 08:32 Skin adhesive Allergy Unknown SURGICAL Verified 05/28/22 08:32 TAPE-PULLS SKIN OFF alendronate sodium AdvReac Unknown MALAISE Verified 05/28/22 08:32 SEVERE HEADACHES, NIGHTMARES cephalexin AdvReac Unknown NAUSEA/DIAR Verified 05/28/22 08:32 MALI clavulanic acid AdvReac Unknown NAUSEA/DIAR Verified 05/28/22 08:32 MALI Estrogens AdvReac Unknown BC Verified 05/28/22 08:32 PILLS/HORMONES-CAUSED PE Penicillins AdvReac Unknown NAUSEA/DIAR Verified 05/28/22 08:32 MALI Quinolones AdvReac Unknown GI UPSET Verified 05/28/22 08:32 Sulfa (Sulfonamide AdvReac Unknown GI UPSET, Verified 05/28/22 08:32 Antibiotics) Rash baclofen AdvReac Mild Ears turn Uncoded 05/28/22 08:32 red and itchy. Procedures Performed Operation Date: 05/28/22 09:25 Actual Procedures p Cystoscopy, Ureteronephroscopy, Retrograde Pyelogram, Laser Destruction of the Stone, Insertion of Stent Catheter Left(Left) - Zach Weinstein MD s Cystolithopaxy (Bladder Stone Fragmentation and Removal)(Not Applicable) - Zach Weinstein MD Ordered Studies 05/28/22 [place] retrograde includes kub Routine Hospital Course (1) Left nephrolithiasis: (2) Bladder calculi: Plan admitted for stone surgery - details as dictated previously. she progressed well post operatively - remaining on IV vancomycin was discharged home on the morning of POD#1. Total Time Total Time Spent Total Time Spent (In Minutes): 15 Discharge Plan Discharge Items Patient Disposition: Home - Self-Care Reason For Visit: STONES Discharge Diagnosis: stones (kidney and bladder) Activity: Resume your previous activity Lifting: Gradually increase as tolerated Bathing: No limitations Sexual Activity: When tolerated Exercise/Sports: Gradually increase as tolerated Non-emergency contact: Urologist Call non-emergency contact if: you have any medication questions, your pain is worsening, you have a fever and your temperature is above 101.5 Follow-up/Referrals: Zach Weinstein MD [Physician] - 06/01/22 1:30 pm (Dr. Weinstein's office to have stent removed 06/01/22 @ 5020) Evangelina Heaton MD [Primary Care Provider] - Diet: Regular Addtl Attending Provider Instructions: Please take all medications as prescribed and keep all follow-ups as scheduled. Please call our office at [phone] with any questions, concerns or need to reschedule appointments for any reason. We are happy to assist you. While you have a ureteral stent in place: Some discomfort is normal. Certain movements may trigger pain or a feeling that you need to urinate. You may also feel mild soreness or pressure before or during urination. These symptoms should go away a few days after the stent is removed. Your urine may be slightly pink or red. This is due to bleeding caused by minor irritation from the stent. This may happen on and off while you have the stent, it is not harmful and is to be expected. Medication to help minimize discomfort or bladder spasms, or to prevent infection may be prescribed. Take this as directed. Drink plenty of fluids to help flush out your urinary tract. If you go home with a catheter, wash with soapy water and a fresh washcloth twice daily. We recommend mild bar soap such as Dial or Dove. How long will you need a stent? An appointment should already be made for you for stent removal, unless directed otherwise. The stent is often taken out after the blockage in the ureter is treated or the ureter has healed. This may take 1-2 weeks, or longer. If a stent is needed for a longer period of time, it may need to be exchanged every few months. Likely prior to your followup appointment you will be asked to get an X-ray, please complete this the night before or morning of your appointment. When to call [facility] Urology at [phone]: Your urine contains heavy blood clots You are constantly leaking urine Fever of 101F or higher, chills, nausea, or vomiting Your pain is not relieved with medication The end of the stent comes out of your urethra PLEASE COME TO DR. WEINSTEIN'S OFFICE ON TUESDAY AT 1:30PM TO HAVE YOUR STENT REMOVED. Pending Studies at Discharge: No Stand-Alone Forms: My [facility] Medications and DC Order Prescriptions: New doxycycline hyclate 100 mg capsule 100 mg PO DAILY Qty: 10 0RF hydrocodone-acetaminophen 5-325 mg tablet 1 tab PO Q6H PRN (Reason: pain) Qty: 10 0RF Continued (DME) Wheelchair (Manual) Device See Rx Instructions .Route Qty: 1 0RF Rx Instructions: wheelchair repair please. Dx: paraplegia G82.20 potassium citrate 10 mEq (1,080 mg) tablet extended release 10 meq PO BID 90 Days Qty: 180 3RF bisacodyl [Dulcolax (bisacodyl)] 10 mg suppository 10 mg [place] QAM Qty: 100 3RF Rx Instructions: BRAND NAME ONLY (DME) Shower Chair Misc See Rx Instructions .Route Qty: 1 0RF Rx Instructions: As directed tolterodine 4 mg capsule,extended release 24hr 4 mg PO QPM Qty: 90 2RF ondansetron 4 mg tablet,disintegrating 4 mg PO Q6H PRN (Reason: nausea and vomiting) Qty: 10 0RF Discharge Orders: Discharge Order (Routine); Ordered 05/29/22 Ordered By: Saturnino Zhao Admission Data Admit Date/Time: 05/28/22 11:48 Attending Provider: Zach Weinstein Admit Provider: Zach Weinstein Primary Care Provider: Evangelina Heaton Other Interventions: Discharge Summary Assessment (RN) Last Done: 05/29/22 11:01 Coding Level of Care Code HOSP INP/OBS DISCH 30 MIN/LESS Diagnoses Left nephrolithiasis N20.0 Bladder calculi N21.0
[2022-06-03 14:32] LABS: Component 2 DNR; Source BLADDER STONE; Source LEFT KIDNEY STONE
== END 2022-05-29 12:30 | disposition home or self-care (01) ==
LOC: 3W 07:30 → ASU 07:30

== ENCOUNTER 2023-01-04 11:57 | Observation (INO) ==
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
[~2023-01-04 11:57] MED LIST changes: -AMPICILLIN 1,000 MG in SODIUM CHLOR 0.9% AD-VAN 50 ML IV SCH; -GENTAMICIN SULFATE 80 MG in DEXTROSE 5% 100 ML IV SCH; -VANCOMYCIN HCL 1,000 MG/270 ML BAG IV SCH; +cefTRIAXone SODIUM 1,000 MG in DEXTROSE 5% AD-VAN 50 ML IV SCH
[2023-01-04] MEDS ORDERED: ONDANSETRON INJ 2 MG/ML 2 ML VIAL IV PRN ×2 (13:04→22:13)
[2023-01-04] MEDS ORDERED: ePHEDrine sulfate 50 MG/ML AMP IV PRN (13:04)
[2023-01-04] MEDS ORDERED: ATROPINE SULFATE 0.1 MG/ML 10ML SYR IV PRN (13:04)
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
[2023-01-04] MEDS ORDERED: ONDANSETRON INJ 2 MG/ML 2 ML VIAL ONE (14:38)
[2023-01-04] MEDS ORDERED: LIDOCAINE 2% 2 ML VIAL/AMP(20MG/ML) INFIL ONE (14:38)
[2023-01-04] MEDS ORDERED: MIDAZOLAM HCL 1 MG/ML 2ML VIAL ONE (14:38)
[2023-01-04] MEDS ORDERED: fentaNYL citrate PF 100 MCG/2 ML VIAL ONE (14:38)
[2023-01-04] MEDS ORDERED: PROPOFOL IV EMULSION 10 MG/ML 20 ML VIAL IV ONE (14:38)
[2023-01-04] MEDS ORDERED: ePHEDrine sulfate 50 MG/ML SYR ONE (16:29)
[2023-01-04] MEDS ORDERED: ACETAMINOPHEN 325 MG TAB PO PRN (16:51)
[2023-01-04] MEDS ORDERED: HYDROCODONE/ACETAMOPHEN 5/325MG TAB PO PRN (16:51)
[2023-01-04] MEDS ORDERED: KETOROLAC TROMETHAMINE 15 MG/ML VIAL IV PRN (16:51)
--- NOTE | 2023-01-04 17:14 | Operative Report ---
PG Post Operative Report Pre & Post Diagnosis Operation Date: 01/04/23 13:00 Pre-Op Diagnosis: Bilateral Nephrolithiasis Post-Op Diagnosis: Bilateral Nephrolithiasis I identified the patient and participated in the time-out.: Yes Procedure Operation Date: 01/04/23 13:00 Actual Procedures p Cystoscopy, Ureteronephroscopy, Laser lithotripsy of Stone, Insertion of Stent Catheter - Bilateral(Bilateral) - Zach Weinstein MD Surgeon Zach Weinstein MD Exchange Floor Manager none Estimated Blood Loss 0 Findings Consistent with Post-Op Diagnosis Specimens Kidney stone for chemical analysis Description of Procedure The patient was identified in the preoperative holding area, appropriate informed consents were reviewed and completed and the patient was transferred to the operative suite. Upon arrival, appropriate antibiotics and anesthesia were administered and the patient was placed in dorsal lithotomy position and prepped and draped in sterile fashion. To begin the case I passed a 22 [place]i cystoscope per urethra. Inspection revealed healthy appearing bladder with ureteral orifices in orthotopic position. She does have a solitary stone within the bladder and I irrigated this out. I then turned my attention to the right ureteral orifice and cannulated it with a sensor wire and 10 [place]i double-lumen catheter. A second wire was then introduced into the kidney before exchanging the 10 [place] double- lumen catheter for a flexible ureteral access sheath. This was positioned at the UPJ. I passed a flexible ureteroscope per the access sheath and inspected the entire kidney. There was a large calcification in the midportion of the kidney. There were a few small fragments in the posterior aspect of the kidney. I used a 365 m thulium laser fiber to fragment the large stone entirely and then treat the smaller pieces. There was a substantial amount of sand and dust within the kidney but I tried to irrigate all of this out of the kidney. I saw no other large retained fragments. I then performed a careful exit ureteroscopy confirming a clear ureter. I proceeded to place a 6 [place]i by 26 cm double-J s tent seeing good curl in the kidney as well as the bladder. Before concluding the case, I turned my attention to her left UO. I cannulated the left UO with a sensor wire and a 10 [place]i double-lumen catheter before advancing a second wire and then ultimately exchanging the 10 [place]i for a ureteral access sheath. I advanced the ureteroscope per sheath and inspected the kidney. There were stones scattered around the kidney including the upper mid and lower pole. There were some large calcifications easily visible on fluoroscopy that were not readily apparent with the scope upon entry into the kidney. Beginning in the upper pole I used a 365 m fiber to fragment the stones entirely and try to irrigate all the stone debris out of the kidney. I worked my way towards the lower pole where the largest accumulation of calcium appears to be. I could not access any area to treat the stones with 365 m fiber but I could see stones in the extreme lower pole. I exchanged for 150 m thulium laser fiber and was able to subsequently reach some of the stones. 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 Interestingly, despite clearing a tremendous amount of stone, I was still seeing a substantial amount of calcium on the fluoroscopy. I inspected numerous times and cannot definitively identify further stone although it certainly could be present. I also entertain the possibility that these may be parenchymal calcifications. This also very well may be her site of initial percutaneous access several years ago for percutaneous nephrolithotomy. Some of that tract may be scarred giving its current appearance. Went over the case, I did perform repeat renoscopy several times reportedly within the kidney and I tried to ensure all fragments had been treated to a suitable size. I performed a careful exit ureteroscopy while simultaneously extracting the sheath and I saw no large stones within the ureter and a healthy-appearing ureter. I placed a 6 x 26 cm stent seeing a good curl in the upper pole as well as the bladder. A 20 [place]raini catheter was inserted and the case was concluded. She was reversed of anesthesia and taken to the recovery room in stable condition. There were no complications. I attest to the content of the Intraoperative Record and any orders documented therein. Any exceptions are noted below.
[2023-01-04] MEDS: fentaNYL citrate PF 100 MCG/2 ML VIAL IV PRN ×3 (17:29→17:57)
--- NOTE | 2023-01-04 18:00 | Anesthesiology Progress Note ---
Date of Service January 04, 2023 Anesthesia Post Procedure Vital Signs Vital Signs: Temp Pulse Pulse Resp BP Pulse Ox O2 Del Method 01/04/23 17:15 55 L 17 184/79 H 99 Room Air 01/04/23 17:05 49 L 15 165/75 H 93 Room Air 01/04/23 16:55 52 L 14 174/84 H 95 Room Air 01/04/23 16:45 97.0 F L 71 21 159/81 H 96 Room Air 01/04/23 12:27 98.4 F 63 18 131/66 98 Room Air Pain Intensity Abdomen: Pain Intensity: 3 Transfer of Care Handoff Completed per policy Notes Mental Status: alert / awake / arousable and participated in evaluation Patient Amnestic to Procedure: Yes Nausea / Vomiting: adequately controlled Pain: adequately controlled Airway Patency, RR, SpO2: stable & adequate BP & HR: stable & adequate Hydration State: stable & adequate Anesthetic Complications: no major complications apparent and Pt Satisfied with anesthetic care
[2023-01-04] MEDS: SODIUM CHLORIDE 0.9% 1000ML 1,000 ML IV SCH (18:30)
--- NOTE | 2023-01-04 18:34 | Fluoroscopy Report ---
FL KUB CLINICAL HISTORY: BILATERAL CYSTO TECHNIQUE: 6 views were obtained with the C-arm in the OR with the above procedure. Total fluoroscopy time was 39.3 seconds. Radiation dose was 4.04 mGy. Comparison: Comparison is made to CT abdomen pelvis 12/09/2022 FINDINGS/IMPRESSION: Intraoperative images were obtained of bilateral laser lithotripsy, stone extrac tion, and stent placement. The final images, the ureteral stents are in satisfactory position. Please correlate with intraoperative fluoroscopy and operative report. ACT 112: Negative or not required by law. Electronically signed by: Jairo Macdonald M.D. 01/04/2023 6:33 PM
[2023-01-04] MEDS ORDERED: cefTRIAXone SODIUM 1,000 MG in DEXTROSE 5% 50 ML IV SCH (19:00)
[2023-01-04 19:47] LABS: Eosinophils # (auto) 0.02 K/uL (0-0.50); Eosinophils % (auto) 0.4 %; Hemoglobin 14.7 g/dl (12.0-16.0); Immature Granulocytes # (auto) 0.01 K/uL (0.01-0.20); Immature Granulocytes % (auto) 0.2 %; Lymphocytes # (auto) 0.92 K/uL (1.2-3.4); Lymphocytes % (auto) 16.6 %; Mean Corpuscular Hemoglobin 29.3 pg (25.0-34.0); Mean Corpuscular Hgb Conc 33.4 g/dL (32.0-36.0); Mean Corpuscular Volume 87.8 fL (80.0-100.0); Mean Platelet Volume 9.2 fL (9.4-12.4); Monocytes # (auto) 0.13 K/uL (0.11-0.59); Monocytes % (auto) 2.4 %; Neutrophils # (auto) 4.45 K/uL (1.40-6.50); Neutrophils % (auto) 80.4 %; Platelet Count 148 K/uL (130-400); RDW Standard Deviation 44.4 fL (36.4-46.3); Red Blood Count 5.01 M/uL (4.20-5.40); White Blood Count 5.53 K/ul (4.8-10.8)
[2023-01-04 19:54] LABS: BUN Creatinine Ratio 17.9 (10-20); Calcium 9.2 mg/dl (8.6-10.3); Creatinine Clr Calc Pharmacy 75.5 ml/min; Est GFR (African American) 107.7 ml/min; Est GFR (Non-African American) 92.9 ml/min
[2023-01-04] MEDS: ASCORBIC ACID 500 MG TAB PO SCH (20:05)
[2023-01-04] MEDS: POTASSIUM CITRATE 10 MEQ TAB PO SCH (20:05)
[2023-01-04] MEDS ORDERED: OXYBUTYNIN CHLORIDE XL 5 MG TABCR PO SCH (21:00)
[2023-01-05] MEDS: HYDROCODONE/ACETAMOPHEN 5/325MG TAB PO PRN ×2 (02:56→11:46)
[2023-01-05 06:34] LABS: Basophils # (auto) 0.02 K/uL (0-0.2); Basophils % (auto) 0.3 %; Eosinophils # (auto) 0.01 K/uL (0-0.50); Eosinophils % (auto) 0.1 %; Hematocrit (blood only) 41.1 % (37.0-47.0); Hemoglobin 13.6 g/dl (12.0-16.0); Immature Granulocytes # (auto) 0.04 K/uL (0.01-0.20); Immature Granulocytes % (auto) 0.6 %; Lymphocytes # (auto) 1.26 K/uL (1.2-3.4); Mean Corpuscular Hemoglobin 29.4 pg (25.0-34.0); Mean Corpuscular Hgb Conc 33.1 g/dL (32.0-36.0); Mean Platelet Volume 9.7 fL (9.4-12.4); Monocytes # (auto) 0.52 K/uL (0.11-0.59); Monocytes % (auto) 7.4 %; Neutrophils # (auto) 5.14 K/uL (1.40-6.50); Neutrophils % (auto) 73.6 %; Platelet Count 154 K/uL (130-400); RDW Standard Deviation 44.9 fL (36.4-46.3); Red Blood Count 4.62 M/uL (4.20-5.40); White Blood Count 6.99 K/ul (4.8-10.8)
[2023-01-05 06:43] LABS: BUN Creatinine Ratio 15.3 (10-20); Creatinine Clr Calc Pharmacy 59.5 ml/min; Est GFR (African American) 83.9 ml/min; Est GFR (Non-African American) 72.4 ml/min; Potassium 4.4 mmol/L (3.5-5.1)
--- NOTE | 2023-01-05 08:23 | Urology Progress Note ---
Date of Service January 05, 2023 Assessment & Plan (1) Bilateral nephrolithiasis: Plan Bilateral stones status post bilateral ureteroscopy Doing relatively well today Would like her to have a dose of ceftriaxone this morning We will discharge her home on antibiotics for 7 to 10 days Some Zofran as well Remove catheter prior to discharge Otherwise seems to be doing relatively well Admission and Anticipated Discharge Date Admission Date: January 04, 2023 Subjective Did quite well overnight Initially had some discomfort after the surgery but that seemed to resolve throughout the course of the night She has had good urine output Her vitals have been stable aside from some mild bradycardia (somewhat normal for her) Catheter draining appropriately Physical Exam Physical Exam: Catheter draining well with some stone debris Results & Data Vital Signs (Past 12 Hours) Vital Signs Temp Pulse Resp BP BP Pulse Ox O2 Del Method 01/05/23 07:07 36.6 C 43 L 16 121/68 100 Room Air 01/05/23 02:52 36.9 C 48 L 17 113/53 L 98 Room Air 01/04/23 23:35 36.6 C 50 L 18 105/53 L 100 Room Air 01/04/23 21:29 36.4 C L 50 L 18 138/74 98 Room Air 01/04/23 20:29 36.6 C 51 L 17 157/62 H 98 Room Air PG Care Time/CCT Total # of Minutes Spent Total Time Spent with Patient: Total time spent is greater than 50% in coordination of care (as documented) at patient's floor/unit and/or counseling patient: Coding Level of Care Code None Diagnoses Bilateral nephrolithiasis N20.0
[2023-01-05] MEDS ORDERED: bisacodyL 10 MG SUPP PR SCH (09:00)
[2023-01-05] MEDS: POTASSIUM CITRATE 10 MEQ TAB PO SCH (09:01)
[2023-01-05] MEDS: ASCORBIC ACID 500 MG TAB PO SCH (09:01)
[2023-01-05] MEDS: SODIUM CHLORIDE 0.9% 1000ML 1,000 ML IV SCH (09:04)
[2023-01-05] MEDS ORDERED: cefTRIAXone SODIUM 1,000 MG in DEXTROSE 5% AD-VAN 50 ML IV ONE (11:00)
--- NOTE | 2023-01-05 16:37 | Discharge Summary ---
Date of Service January 05, 2023 Admission HPI Per Admitting Provider 62-year-old female paraplegic with chronic urinary retention and infections who has had prior percutaneous nephrolithotomy and is a recurrent stone former She recently was imaged and found to have a substantial stone burden in both the right and left kidney. She presents today for definitive treatment with attempt plan for both right and left ureteroscopy with laser lithotripsy. We will begin on the right side and progressed to the left presuming she is tolerating the surgery well and time is appropriate for Admission Exam Per Admitting Provider Constitutional: well developed and well nourished Neck: neck nontender Respiratory: normal respiratory effort; no respiratory distress and does not use accessory muscles Cardiovascular: Rate/Rhythm: regular rate Vessels: radial pulses present Extremities: no edema Gastrointestinal (Abdomen): Inspection/Auscultation: abdomen normal to inspection Percussion/Palpation: abdomen soft; abdomen nontender and no guarding Musculoskeletal: Head/Neck/Chest: normocephalic and head atraumatic Extremities: extremities normal to inspection Skin: no rashes and no lesions Trauma: no evidence of skin trauma Neurologic: awake; not obtunded Speech / Cognition: normal speech Motor/Sensory: no tremor Psychiatric: Orientation: alert and oriented x 3 Lymphatic: no lymphadenopathy Principal Diagnosis Bilateral nephrolithiasis Discharge Exam Constitutional no acute distress Respiratory no respiratory distress and no labored breathing Skin Warm and dry Neurologic awake Psychiatric Orientation: alert, oriented x 3 and cooperative Discharge Data Allergies Allergy/AdvReac Type Severity Reaction Status Date / Time sulfamethoxazole Allergy Severe Skin Verified 01/04/23 12:25 [From Bactrim] redness trimethoprim [From Bactrim] Allergy Severe Skin Verified 01/04/23 12:25 redness adhesive Allergy Unknown Surgical Verified 01/04/23 12:25 tape- "pulls skin off" alendronate sodium AdvReac Unknown Malaise, Verified 01/04/23 12:25 severe headaches, nightmares cephalexin AdvReac Unknown Nausea, Verified 01/04/23 12:25 diarrhea clavulanic acid AdvReac Unknown Nausea, Verified 01/04/23 12:25 diarrhea Estrogens AdvReac Unknown OCP- Verified 01/04/23 12:25 Pulmonary embolism Penicillins AdvReac Unknown Nausea, Verified 01/04/23 12:25 diarrhea Quinolones AdvReac Unknown GI upset Verified 01/04/23 12:25 Sulfa (Sulfonamide AdvReac Unknown GI upset, Verified 01/04/23 12:25 Antibiotics) Rash baclofen AdvReac Mild Ear Uncoded 01/04/23 12:25 redness/itchy Procedures Performed Operation Date: 01/04/23 13:00 Actual Procedures p Cystoscopy, Ureteronephroscopy, Laser lithotripsy of Stone, Insertion of Stent Catheter - Bilateral(Bilateral) - Zach Weinstein MD Ordered Studies 01/04/23 13:00 FL KUB Routine Hospital Course (1) Bilateral nephrolithiasis: Plan 62-year-old female paraplegic admitted status post bilateral ureteroscopy and stone treatment with Dr. Weinstein. Patient tolerated procedure well. No acute issues postoperatively. She remained afebrile and hemodynamically stable. Minimal pain. She had good urine output. Tolerated diet. Received ceftriaxone postoperatively. She was discharged home on postop day #1 in stable condition. The Kahn catheter was removed prior to discharge. She was discharged home on antibiotics for 10 days. Discharge instructions were reviewed, all questions were answered. Total Time Total Time Spent Total Time Spent (In Minutes): 15 Discharge Plan Discharge Items Patient Disposition: Home - Self-Care Reason For Visit: KIDNEY STONES Discharge Diagnosis: Kidney stones Activity: Per Instructions section Non-emergency contact: Surgeon and Urologist Call non-emergency contact if: you have any medication questions, your symptoms worsen, your pain is worsening and you have a fever Follow-up/Referrals: Zach Weinstein MD [Physician] - 01/19/23 3:00 pm (APPOINTMENT WITH [facility]) Evangelina Heaton MD [Primary Care Provider] - Diet: Regular Addtl Attending Provider Instructions: Please take all medications as prescribed and keep all follow-ups as scheduled. Please call the urology office at [phone] with any questions, concerns or need to reschedule appointments for any reason. We are happy to assist you. An antibiotic - Macrobid 100mg twice daily for 10 days was sent to your pharmacy. Please take as directed. Hold your methenamine while taking, can resume after completing course. Pain and nausea medication as needed were also sent to your pharmacy. While you have a ureteral stent in place: Some discomfort is normal. Certain movements may trigger pain or a feeling that you need to urinate. You may also feel mild soreness or pressure before or during urination. These symptoms should go away a few days after the stent is removed. Your urine may be slightly pink or red. This is due to bleeding caused by minor irritation from the stent. This may happen on and off while you have the stent, it is not harmful and is to be expected. Medication to help minimize discomfort or bladder spasms, or to prevent infection may be prescribed. Take this as directed. Drink plenty of fluids to help flush out your urinary tract. How long will you need a stent? The urology office will contact you to arrange a follow-up visit. When to call [facility] at [phone]: Your urine contains heavy blood clots Fever of 101F or higher, chills, nausea, or vomiting Your pain is not relieved with medication The end of the stent comes out of your urethra Pending Studies at Discharge: No Stand-Alone Forms: My [facility], Smoking Cessation Medications and DC Order Prescriptions: New hydrocodone-acetaminophen 5-325 mg tablet 1 tab PO Q8H PRN (Reason: pain) Qty: 7 0RF ondansetron 4 mg tablet,disintegrating 4 mg PO Q6H PRN (Reason: nausea and vomiting) Qty: 7 0RF nitrofurantoin monohyd/m-cryst [Macrobid] 100 mg capsule 100 mg PO BID 10 Days Qty: 20 0RF Rx Instructions: must administer with a meal/food Continued (DME) Wheelchair (Manual) Device See Rx Instructions .Route Qty: 1 0RF Rx Instructions: wheelchair repair please. Dx: paraplegia G82.20 bisacodyl [Dulcolax (bisacodyl)] 10 mg suppository 10 mg PA QAM Qty: 100 3RF Rx Instructions: BRAND NAME ONLY (DME) Shower Chair Misc See Rx Instructions .Route Qty: 1 0RF Rx Instructions: As directed potassium citrate 10 mEq (1,080 mg) tablet extended release 10 meq PO BID 90 Days Qty: 180 3RF tolterodine 4 mg capsule,extended release 24hr 4 mg PO QPM Qty: 90 3RF methenamine hippurate 1 gram tablet 1 g PO BID Qty: 60 5RF ascorbic acid (vitamin C) [Vitamin C] 500 mg Tablet 500 mg PO BID Discharge Orders: Discharge Order (Routine); Ordered 01/04/23 Ordered By: Zach Weinstein Admission Data Admit Date/Time: 01/04/23 16:51 Attending Provider: Zach Weinstein Admit Provider: Zach Weinstein Primary Care Provider: Evangelina Heaton Other Interventions: Discharge Summary Assessment (RN) Last Done: 01/05/23 13:11 Coding Level of Care Code 36434 IN/OBS DISCH 30 MIN/LESS Diagnoses Bilateral nephrolithiasis N20.0
[2023-01-11 00:22] LABS: Component 2 DNR; Source RIGHT KIDNEY STONE
== END 2023-01-05 14:33 | disposition home or self-care (01) ==
LOC: 3E 11:57 → ASU 11:57